=== PATIENT | male | born 1975 | race Hispanic/Latino ===

== ENCOUNTER 2023-11-21 21:49 | Inpatient (IN) | payer OTHER, SELFPAY ==
[2023-11-21] MEDS ORDERED: ONDANSETRON 4 MG/2 ML VIAL ONE (23:19)
[2023-11-21] MEDS ORDERED: FAMOTIDINE 20 MG/2 ML VIAL IV ONE (23:20)
[2023-11-21] MEDS ORDERED: MORPHINE 4 MG/ML SYR ONE (23:20)
[2023-11-21] MEDS ORDERED: NA CHLORIDE 0.9% 1,000 ML ONE (23:20)
[2023-11-21] MEDS ORDERED: NS 0.9% VIAL 10 ML ONE (23:21)
[2023-11-21 23:25] LABS: Absolute Basophils 0.1 K/uL (0-0.5); Absolute Lymphocytes (CBC) 3.5 K/uL (0.7-4.9); Absolute Monocytes 1.4 K/uL (0.1-1.3); Absolute Neutrophil 28.8 K/uL (1.8-8.0); Basophils % 0.3 % (0-1.3); Eosinophils % 0.1 % (0-4.4); Hematocrit 46.1 % (39.6-49.0); Hemoglobin 15.9 g/dL (13.6-17.9); Lymphocytes % 10.4 % (15.3-44.8); MCH 32.4 pg (27.0-35.0); MCHC 34.4 g/dL (32.0-36.0); MCV 94.2 fL (80-100); MPV 7.9 fL (7.6-11.3); Neutrophils % 85.2 % (41.7-73.7); Platelets 419 thou/uL (152-406); RBC Red Blood Cell Count 4.89 M/uL (4.33-5.43); Red Cell Distribution Width 13.3 % (12.1-15.2)
[2023-11-21 23:36] LABS: PTT, Activated Partial Thromb 26.7 SECONDS (24.3-36.9); Protime INR 1.28
[2023-11-21 23:50] LABS: Differential Total Cells Count 100; Segmented Neutrophils 81 % (40-80)
[2023-11-21 23:51] LABS: Blood Morphology Comment NOT SEEN (NOT SEEN); Lymphocytes 12 % (15-42); Monocytes 6 % (0-10); Platelet Estimate ADEQ; Platelets Clumped FEW
[2023-11-21 23:52] LABS: ALT/SGPT 27 U/L (16-61); AST/SGOT 19 U/L (15-37); Albumin 3.2 g/dL (3.4-5.0); Albumin/Globulin Ratio 0.6 (1.1-1.8); Alkaline Phosphatase 92 U/L (45-117); Anion Gap 14.6 mEq/L (5.0-15.0); BUN Blood Urea Nitrogen 16 mg/dL (7-18); Bicarbonate 24 mEq/L (21-32); Bilirubin Total 0.5 mg/dL (0.2-1.0); Glomerular Filtration Rate 71 ml/min (=/>90); Glucose Level 305 mg/dL (74-106); Lipase 32 U/L (13-75); Potassium 3.6 mEq/L (3.5-5.1); Protein, Total 8.2 g/dL (6.4-8.2); Sodium Level 131 mEq/L (136-145)
[2023-11-21 23:53] LABS: Troponin High Sensitivity < 3.0 pg/mL (<58.9)
[2023-11-21] MEDS ORDERED: NA CHLORIDE 0.9% 3,000 ML ONE (23:58)
--- NOTE | 2023-11-22 01:47 | EDPHYS ---
Physician Documentation [facility] Name: Ghassan Ramírez Age: 48 yrs Sex: Male : 1975 Arrival Date: 11/21/2023 Time: 21:49 Bed 6 Private MD: ED Physician Art Sullivan HPI: 11/20 23:36 This 48 yrs old Male presents to ER via Ambulatory with complaints of sb4 Abdominal Pain. 23:36 Patient started experiencing nausea, vomiting, and diarrhea 3 days ago. He initially sb4 suspected a stomach bug however today, his pain became severe and intolerable. He reports pain in his epigastric region that radiates up his chest. Denies any known fevers or prior abdominal surgeries. Denies any urinary symptoms. Historical: - Allergies: 22:37 PENICILLINS; jj7 22:37 Aspirin; jj7 - PMHx: 22:37 Hypertensive disorder; Diabetes mellitus; jj7 - PSHx: 22:37 None; jj7 - Immunization history:: Adult Immunizations not up to date, Client reports having NOT received the Covid vaccine. Flu vaccine is not up to date. - Social history:: Smoking status: Patient denies any tobacco usage or history of. Patient uses alcohol, occasionally. Patient/guardian denies using street drugs, IV drugs. ROS: 23:36 Constitutional: Negative for fever, chills, and weight loss, sb4 23:36 Abdomen/GI: Positive for abdominal pain, nausea, vomiting, and diarrhea, 23:36 All other systems are negative, Exam: 23:36 Head/Face: Normocephalic, atraumatic. Eyes: Extra-ocular motions intact. Periorbital sb4 areas with no swelling, redness, or edema. ENT: Mucous membranes moist. Cardiovascular: Regular rate and rhythm with a normal S1 and S2. Respiratory: Lungs have equal breath sounds bilaterally, clear to auscultation and percussion. No rales, rhonchi or wheezes noted. No increased work of breathing, no retractions or nasal flaring. Skin: Warm, dry with normal turgor. Normal color with no rashes, no lesions, and no evidence of cellulitis. MS/ Extremity: Pulses equal, no cyanosis. Neurovascular intact. Full, normal range of motion. Neuro: Awake and alert, GCS 15, oriented to person, place, time, and situation. Motor strength 5/5 in all extremities. Sensory grossly intact. 23:36 Constitutional: The patient appears alert, awake, in obvious pain, 23:36 Abdomen/GI: Inspection: obese Bowel sounds: normal, Palpation: soft, moderate abdominal tenderness, in the epigastric area and suprapubic area, Vital Signs: 22:32 BP 152 / 85; Pulse 110; Resp 20; Temp 97; Pulse Ox 99% ; Weight 131.09 kg; Height 5 ft. jj7 6 in. ; Pain 10/10; 22:56 BP 147 / 93; Pulse 118; Resp 22; Temp 98; Pulse Ox 97% on R/A; yb 23:53 BP 147 / 93; Pulse 117; Resp 20 S; Pulse Ox 98% on R/A; ha1 11/21 00:30 BP 156 / 76; Pulse 124; Resp 22; Pulse Ox 99% ; yb 01:15 BP 155 / 84; Pulse 123; Resp 22; Pulse Ox 98% on R/A; yb 01:55 BP 148 / 102; Pulse 132; Resp 20; Pulse Ox 98% on R/A; yb 02:30 BP 144 / 83; Pulse 129; Resp 24; Temp 97.5(O); Pulse Ox 97% on R/A; yb 11/20 22:32 Body Mass Index 46.65 (131.09 kg, 167.64 cm) [facility] 11/20 22:32 Pain Scale: Adult [facility] MDM: 11/20 22:39 Patient medically screened. sb4 11/21 01:27 Post IV fluid administration reassessment for Sepsis: Client prescribed 30 mL/kg IVF. sb4 Sepsis focused reassessment complete. 01:45 Data reviewed: vital signs, nurses notes, lab test result(s), EKG, radiologic studies, sb4 I have discussed the patient's presentation/case with the attending Emergency Department Physician; and as a result, I will admit patient. Consideration of Admission/Observation Patient was admitted/placed on observation. Management of patient was discussed with the following: Hospitalist: Dr. Pete. Patient Support Assistant: Dr. Montemayor, will operate immediately- exlap. Historians other than the Patient: Daughter/Son: daughter. Care significantly affected by the following chronic conditions: Diabetes, Hypertension, Obesity. Counseling: I had a detailed discussion with the patient and/or guardian regarding the historical points, exam findings, and any diagnostic results supporting the discharge/admit diagnosis, lab results, radiology results, the need for further work-up and treatment in the hospital. 01:47 Post IV fluid administration reassessment for Sepsis: Focused Assessment performed: November 22, 2023 at 01:47 Heart: Regular rate/rhythm noted. Lungs: Noted to be clear bilaterally. Peripheral pulse evaluation performed. Radial Peripheral pulses noted to be 3+ normal. Skin examination performed. Skin noted to have normal turgor. Current vital signs reviewed: Yes. 11/20 22:51 Order name: Blood Culture Adult (2) [facility] 11/20 22:51 Order name: CBC with Diff; Complete Time: 23:52 4 11/20 22:51 Order name: CMP; Complete Time: 00:01 sb4 11/20 22:51 Order name: Lactate w/ 2H reflex if indic.; Complete Time: 23:46 4 11/20 22:51 Order name: Protime (+inr); Complete Time: 23:39 sb4 11/20 22:51 Order name: Ptt, Activated; Complete Time: 23:39 sb4 11/20 22:51 Order name: Troponin HS; Complete Time: 00:01 4 11/20 22:51 Order name: Lipase; Complete Time: 00:01 4 11/20 23:30 Order name: Manual Differential; Complete Time: 23:52 EDMS 11/20 23:46 Order name: UAM; Complete Time: 02:55 sb4 11/21 01:28 Order name: Lactate w/ 2H reflex if indic. 4 11/21 02:20 Order name: Glucose, Ancillary Testing; Complete Time: 02:22 EDMS 11/21 02:25 Order name: Type And Screen sb4 11/20 23:47 Order name: CT Aorta for Dissection 4 11/20 22:51 Order name: EKG; Complete Time: 22:52 sb4 11/20 22:51 Order name: Accucheck; Complete Time: 23:52 sb4 11/20 22:51 Order name: Cardiac monitoring; Complete Time: 23:35 sb4 11/20 22:51 Order name: EKG - Nurse/Tech; Complete Time: 23:35 sb4 11/20 22:51 Order name: IV Saline Lock - Large Bore; Complete Time: 23:35 sb4 11/20 22:51 Order name: Labs collected and sent; Complete Time: 23:35 sb4 11/20 22:51 Order name: O2 Per Protocol; Complete Time: 23:36 sb4 11/20 22:51 Order name: O2 Sat Monitoring; Complete Time: 23:36 sb4 11/20 22:51 Order name: Vital Signs; Complete Time: 23:36 sb4 11/21 01:26 Order name: NPO; Complete Time: :33 sb4 EC:12 Rate is 113 beats/min. Rhythm is regular, Sinus tachycardia. MN interval is normal at sb4 148 msec. QRS interval is normal at 72 msec. QT interval is normal at 344 msec. No Q waves. T waves are Normal. No ST changes noted. Clinical impression: Sinus tachycardia and No evidence of ischemia. Interpreted by me. Reviewed by me. Administered Medications: 11/19 23:20 Drug: morphine IVP or IV 4 mg IVP once over 4 mins Route: IVP; Infused Over: 4 mins; yb Site: right hand; 11/21 00:00 Follow up: Response: Pain is unchanged, physician notified 11/20 23:20 Drug: Ondansetron IVP 4 mg IVP once; over 2 minutes Route: IVP; Site: right hand; yb 11/21 00:11 Follow up: Response: Nausea is decreased 11/20 23:20 Drug: NS 0.9% IV 1000 ml IV at 1 bolus Per protocol; 1000 mL bolus Route: IV; Rate: 1 yb bolus; Site: right hand; 11/21 00:12 Follow up: Response: No adverse reaction; IV Status: Completed infusion; IV Intake: yb 1000ml 11/20 23:24 Drug: Famotidine IVP 10 mg IVP once; dilute with 10 mL 0.9% NaCl; give over 2 minutes yb Route: IVP; Site: right hand; 11/21 00:11 Follow up: Response: No adverse reaction; Nausea is decreased yb 00:00 Drug: HYDROmorphone IVP 1 mg IVP once Route: IVP; Site: left antecubital; yb 00:30 Follow up: Response: No adverse reaction; Pain is decreased yb 00:05 Drug: NS 0.9% IV (30 ml/kg) 30 ml/kg IV at bolus once; Sepsis Protocol - 3 liters yb Route: IV; Rate: bolus; Site: left antecubital; 02:15 Follow up: Response: No adverse reaction; Cardiac rhythm is unchanged; IV Status: yb Completed infusion; IV Intake: 3000ml 01:44 Not Given (Physician Discretion): [id number] mg 200 ml IVPB once over 60 mins sb4 01:52 Drug: Rocephin IV 2 grams IV at calculated rate once; Given slow IV push per pharmarcy yb instructions Route: IV; Rate: calculated rate; Site: right hand; 02:00 Follow up: Response: No adverse reaction; IV Status: Completed infusion yb 02:10 Drug: metroNIDAZOLE IVPB 500 mg 100 ml IVPB at 200 ml/hr once over 30 mins Volume: 100 yb ml; Route: IVPB; Rate: 200 ml/hr; Infused Over: 30 mins; Site: right antecubital; 02:40 Follow up: Response: No adverse reaction; IV Status: Completed infusion; IV Intake: yb 100ml 02:30 Drug: Pantoprazole IVP 80 mg IVP once Route: IVP; Site: left antecubital; yb 02:35 Follow up: Response: No adverse reaction yb 02:30 Drug: Insulin Regular Human IVP 10 units IVP once {Co-Signature: raul (Kat Pina RN).} Route: IVP; Site: left antecubital; 02:42 Follow up: Response: No adverse reaction yb 02:32 Drug: Pantoprazole IV 8 mg/hr IV at 25 ml/hr continuous; (Standard dilution is 80 mg in yb 250 mL NS) Route: IV; Rate: 25 ml/hr; Site: right hand; 02:46 Follow up: Response: No adverse reaction; IV Status: Infusion continued upon admission yb Disposition: 01:45 Co-signature as Attending Physician, Art Sullivan MD I agree with the assessment sp4 and plan of care. I reviewed the patient's care provided by Advanced Practice Provider \T\ agree w/ the diagnosis \T\ care plan. I personally saw the pt \T\ performed a substantive portion of the visit, incldng all aspects of the (History/Exam/Medical Decision Making). Disposition Summary: 11/22/23 01:46 Hospitalization Ordered Notes: Hospitalization Status: Inpatient Admission sb4 Provider: Pallavi Pete Location: Intensive Care Unit sb4 Condition: Serious sb4 Problem: new sb4 Symptoms: are unchanged sb4 Bed/Room Type: Standard sb4 Room Assignment: sb4 Diagnosis - Duodenitis with acute perforated duodenal ulcer sb4 - Severe sepsis with septic shock sb4 - Duodenitis with perforated duodenal ulcer sb4 - Pneumatosis intestinalis sb4 Forms: - Medication Reconciliation Form sb4 - SBAR form sb4 - Leadership Thank You Letter sb4 Critical care time excluding procedures: 01:45 Critical care time: Bedside Care: 15 minutes, Consultation: 15 minutes, Family sb4 Intervention: 10 minutes. Total time: 40 minutes Signatures: Dispatcher [employer] EDMS Tova Infante RN RN ha1 Jaret Gomez RN RN Helen Garcia, PAMarc PAArt Bolivar MD MD sp4 Kat Pina RN RN yb Brown, Yolanda RN yb Corrections: (The following items were deleted from the chart) 02:08 01:45 Management of patient was discussed with the following: Hospitalist: Dr. Pete. sb4 Patient Support Assistant: Dr. Montemayor, will operate immediately. sb4
--- NOTE | 2023-11-22 01:47 | ER ---
Nurse's Notes [facility] Name: Ghassan Ramírez Age: 48 yrs Sex: Male : 1975 Arrival Date: 11/21/2023 Time: 21:49 Bed 6 Private MD: Diagnosis: Severe sepsis with septic shock;Duodenitis with perforated duodenal ulcer;Pneumatosis intestinalis Presentation: 11/20 22:32 Chief complaint: Patient states: N/V/D SATURDAY. TODAY HE STARTED HAVING ABD PAIN/ jj7 EPIGASTRIC PAIN 20 MINUTES AFTER EATING. Coronavirus screen: At this time, the client does not indicate any symptoms associated with coronavirus-19. Ebola Screen: No symptoms or risks identified at this time. Initial Sepsis Screen: Does the patient meet any 2 criteria? HR > 90 bpm. Yes Does the patient have a suspected source of infection? No. Patient's initial sepsis screen is negative. Risk Assessment: Do you want to hurt yourself or someone else? Patient reports no desire to harm self or others. Onset of symptoms was November 21, 2023. 22:32 Method Of Arrival: Ambulatory 7 22:32 Acuity: OMERO 3 jj7 22:32 Note PEPTO AND TUMS. jj7 Triage Assessment: 22:37 General: Appears in no apparent distress. uncomfortable, Behavior is calm, cooperative, jj7 appropriate for age. Pain: Complains of pain in epigastric area. GI: Reports upper abdominal pain, diarrhea, epigastric pain, nausea. Historical: - Allergies: 22:37 PENICILLINS; jj7 22:37 Aspirin; jj7 - PMHx: 22:37 Hypertensive disorder; Diabetes mellitus; jj7 - PSHx: 22:37 None; jj7 - Immunization history:: Adult Immunizations not up to date, Client reports having NOT received the Covid vaccine. Flu vaccine is not up to date. - Social history:: Smoking status: Patient denies any tobacco usage or history of. Patient uses alcohol, occasionally. Patient/guardian denies using street drugs, IV drugs. Screenin:38 [facility] ED Fall Risk Assessment (Adult) History of falling in the last 3 months, jj7 including since admission No falls in past 3 months (0 pts) Confusion or Disorientation No (0 pts) Intoxicated or Sedated No (0 pts) Impaired Gait No (0 pts) Mobility Assist Device Used No (0 pt) Altered Elimination No (0 pt) Score/Fall Risk Level 0 - 2 = Low Risk Oriented to surroundings, Maintained a safe environment, Educated pt \T\ family on fall prevention, incl call for assistance when getting out of bed. 11/21 00:12 Abuse screen: Denies threats or abuse. Denies injuries from another. Nutritional rv screening: No deficits noted. Tuberculosis screening: No symptoms or risk factors identified. Assessment: 11/20 23:00 General: Appears uncomfortable, Behavior is cooperative, restless, Reports. Pain: yb Complains of pain in abdomen Pain at worst was 10 out of 10 on a pain scale. Quality of pain is described as aching, shooting, Pain began suddenly. Neuro: No deficits noted. Level of Consciousness is awake, Oriented to person, place, time, situation. Cardiovascular: Capillary refill Patient's skin is warm and dry. Respiratory: No deficits noted. Airway is patent Respiratory effort is even, unlabored, Respiratory pattern is regular, symmetrical. GI: Abdomen is round non-distended, Bowel sounds present X 4 quads. Reports lower abdominal pain, upper abdominal pain, nausea. 11/21 00:00 Reassessment: Patient and/or family updated on plan of care and expected duration. Pain ha1 level reassessed. Patient is alert, oriented x 3, equal unlabored respirations, skin warm/dry/pink. 00:19 Reassessment: Off the floor to CT scan. yb 00:38 Reassessment: Patient and/or family updated on plan of care and expected duration. Pain ha1 level reassessed. back from CT. 01:20 Reassessment: Patient and/or family updated on plan of care and expected duration. Pain ha1 level reassessed. Patient is alert, oriented x 3, equal unlabored respirations, skin warm/dry/pink. 02:00 Reassessment: Dr. Pete hospitalist at bedside. yb 02:15 Reassessment: Patient and/or family updated on plan of care and expected duration. Pain ha1 level reassessed. Patient is alert, oriented x 3, equal unlabored respirations, skin warm/dry/pink. Dr. Montemayor in the room. 02:30 Reassessment: patient and family educated on the need for surgery by Sea Dobson. yb Vital Signs: 11/20 22:32 BP 152 / 85; Pulse 110; Resp 20; Temp 97; Pulse Ox 99% ; Weight 131.09 kg; Height 5 ft. jj7 6 in. ; Pain 10/10; 22:56 BP 147 / 93; Pulse 118; Resp 22; Temp 98; Pulse Ox 97% on R/A; yb 23:53 BP 147 / 93; Pulse 117; Resp 20 S; Pulse Ox 98% on R/A; ha1 11/21 00:30 BP 156 / 76; Pulse 124; Resp 22; Pulse Ox 99% ; yb 01:15 BP 155 / 84; Pulse 123; Resp 22; Pulse Ox 98% on R/A; yb 01:55 BP 148 / 102; Pulse 132; Resp 20; Pulse Ox 98% on R/A; yb 02:30 BP 144 / 83; Pulse 129; Resp 24; Temp 97.5(O); Pulse Ox 97% on R/A; yb 11/20 22:32 Body Mass Index 46.65 (131.09 kg, 167.64 cm) jj7 11/20 22:32 Pain Scale: Adult 7 ED Course: 11/20 21:50 Patient arrived in ED. jj6 21:52 Helen Pina [facility]-C [facility]. sb4 21:52 Art Sullivan MD is Attending Physician. sb4 22:36 Triage completed. jj7 22:37 Arm band placed on right wrist. jj7 23:00 Inserted saline lock: 20 gauge in right hand, using aseptic technique. Blood collected. yb 23:30 Inserted saline lock: 20 gauge in left antecubital area, using aseptic technique. yb 11/21 00:12 Patient has correct armband on for positive identification. Client placed on continuous rv cardiac and pulse oximetry monitoring. NIBP monitoring applied. radio antenna installer on. 00:12 No provider procedures requiring assistance completed. rv 00:30 CT Aorta for Dissection In Process Unspecified. EDMS 01:46 Pallavi Pete MD is Hospitalizing Provider. sb4 02:43 Provided Education on: Need for surgery. yb 02:43 Patient admitted, IV remains in place. yb Administered Medications: 11/19 23:20 Drug: morphine IVP or IV 4 mg IVP once over 4 mins Route: IVP; Infused Over: 4 mins; yb Site: right hand; 11/21 00:00 Follow up: Response: Pain is unchanged, physician notified yb 11/20 23:20 Drug: Ondansetron IVP 4 mg IVP once; over 2 minutes Route: IVP; Site: right hand; yb 11/21 00:11 Follow up: Response: Nausea is decreased yb 11/20 23:20 Drug: NS 0.9% IV 1000 ml IV at 1 bolus Per protocol; 1000 mL bolus Route: IV; Rate: 1 yb bolus; Site: right hand; 11/21 00:12 Follow up: Response: No adverse reaction; IV Status: Completed infusion; IV Intake: yb 1000ml 11/20 23:24 Drug: Famotidine IVP 10 mg IVP once; dilute with 10 mL 0.9% NaCl; give over 2 minutes yb Route: IVP; Site: right hand; 11/21 00:11 Follow up: Response: No adverse reaction; Nausea is decreased yb 00:00 Drug: HYDROmorphone IVP 1 mg IVP once Route: IVP; Site: left antecubital; yb 00:30 Follow up: Response: No adverse reaction; Pain is decreased yb 00:05 Drug: NS 0.9% IV (30 ml/kg) 30 ml/kg IV at bolus once; Sepsis Protocol - 3 liters yb Route: IV; Rate: bolus; Site: left antecubital; 02:15 Follow up: Response: No adverse reaction; Cardiac rhythm is unchanged; IV Status: yb Completed infusion; IV Intake: 3000ml 01:44 Not Given (Physician Discretion): [id number] mg 200 ml IVPB once over 60 mins sb4 01:52 Drug: Rocephin IV 2 grams IV at calculated rate once; Given slow IV push per pharmarcy yb instructions Route: IV; Rate: calculated rate; Site: right hand; 02:00 Follow up: Response: No adverse reaction; IV Status: Completed infusion yb 02:10 Drug: metroNIDAZOLE IVPB 500 mg 100 ml IVPB at 200 ml/hr once over 30 mins Volume: 100 yb ml; Route: IVPB; Rate: 200 ml/hr; Infused Over: 30 mins; Site: right antecubital; 02:40 Follow up: Response: No adverse reaction; IV Status: Completed infusion; IV Intake: yb 100ml 02:30 Drug: Pantoprazole IVP 80 mg IVP once Route: IVP; Site: left antecubital; yb 02:35 Follow up: Response: No adverse reaction yb 02:30 Drug: Insulin Regular Human IVP 10 units IVP once {Co-Signature: raul (Kat Pina RN).} Route: IVP; Site: left antecubital; 02:42 Follow up: Response: No adverse reaction yb 02:32 Drug: Pantoprazole IV 8 mg/hr IV at 25 ml/hr continuous; (Standard dilution is 80 mg in yb 250 mL NS) Route: IV; Rate: 25 ml/hr; Site: right hand; 02:46 Follow up: Response: No adverse reaction; IV Status: Infusion continued upon admission yb Medication: 00:12 VIS not applicable for this client. rv Intake: 00:12 IV: 1000ml; Total: 1000ml. yb 02:15 IV: 3000ml; Total: 4000ml. yb 02:40 IV: 100ml; Total: 4100ml. yb Outcome: 01:46 Decision to Hospitalize by Provider. sb4 02:43 Patient left the ED. yb 02:43 Admitted to OR accompanied by nurse, via stretcher, with chart, 02:43 Condition: stable 02:43 Instructed on the need for admit, Signatures: Dispatcher [employer] Rick Starks RN Mansi Nguyen6 Tova Infante RN RN ha1 Johnson, Juwairiyah, RN RN jHelen Ozuna PA-C PA-C sb4 Brown, Yolanda, RN RN yb Brown, Yolanda RN yb Corrections: (The following items were deleted from the chart) 02:53 01:20 Reassessment: Patient and/or family updated on plan of care and expected ha1 duration. Pain level reassessed. Patient is alert, oriented x 3, equal unlabored respirations, skin warm/dry/pink. ha1 03:06 02:57 Admitted to OR accompanied by nurse, via stretcher, with chart, yb yb 03:06 02:57 Condition: stable yb yb 03:06 02:57 Instructed on the need for admit, yb yb 03:06 03:04 Patient left the ED. yb raul
[2023-11-22] MEDS ORDERED: NA CHLORIDE 0.9% 50 ML ONE (01:55)
[2023-11-22] MEDS ORDERED: METRONIDAZOLE 500mg IVPB 500 MG/100 ML BAG IV ONE ×3 (01:55→16:31)
[2023-11-22] MEDS ORDERED: CEFTRIAXONE 2000 MG/VIAL ONE (01:55)
[2023-11-22] MEDS ORDERED: PANTOPRAZOLE 40 MG INJ ONE ×2 (02:13→02:14)
[2023-11-22] MEDS ORDERED: INSULIN REGULAR (HUMAN) 100 UNIT/ML ONE ×2 (02:15→02:20)
[2023-11-22] MEDS ORDERED: MIDAZOLAM HCL 2 MG/2 ML INJ ONE (02:35)
[2023-11-22] MEDS ORDERED: ETOMIDATE 20 MG/10 ML VIAL IV ONE ×2 (02:35→02:36)
[2023-11-22] MEDS ORDERED: FENTANYL CITR 250 MCG/5 ML ONE (02:35)
[2023-11-22] MEDS ORDERED: LIDOCAINE 1% MPF 5 ML VIAL ONE (02:36)
[2023-11-22] MEDS ORDERED: KETOROLAC 30 MG/ML INJ ONE (02:36)
[2023-11-22] MEDS ORDERED: dexAMETHasone 4 MG/ML VIAL ONE (02:36)
[2023-11-22] MEDS ORDERED: NEOSTIGMINE 1 MG/ML -10 ML VIAL ONE (02:36)
[2023-11-22] MEDS ORDERED: GLYCOPYRROLATE 0.2 MG/ML SYR ONE (02:36)
[2023-11-22] MEDS ORDERED: ROCURONIUM 50 MG/5 ML VIAL IV ONE (02:37)
[2023-11-22] MEDS ORDERED: ONDANSETRON 4 MG/2 ML VIAL ONE (02:40)
[2023-11-22 02:52] LABS: Sqamous Epithelial <5 /HPF (None Seen); Urine Bacteria <20 /HPF (<20); Urine Crystals Unidentified Few /HPF (None Seen); Urine Micro Reflex YN NO BILL MICROSCOPIC; Urine Mucus 1+ /HPF (None Seen); Urine RBC >50 /HPF (None Seen); Urine WBC <5 /HPF (<5); Urine Yeast (Budding) Trace /HPF (None Seen)
[2023-11-22 02:53] LABS: Specific Gravity > 1.030 (1.005-1.030); Urine Bilirubin NEGATIVE (Negative); Urine Blood 1+ (Negative); Urine Clarity Clear (Clear); Urine Color Light-Yellow (Yellow); Urine Glucose 3+ (Negative); Urine Ketones NEGATIVE (Negative); Urine Nitrite NEGATIVE (Negative); Urine Protein 1+ (Negative); Urine Urobilinogen Normal (Normal); Urine pH 5.5 (5.0-7.0)
[2023-11-22] MEDS: NA CHLORIDE 0.9% 1,000 ML ONE ×4 (03:02→06:16)
--- NOTE | 2023-11-22 03:33 | P.HP ---
Certification for Inpatient Patient admitted to: Inpatient With expected LOS: >2 Midnights Patient will require the following post-hospital care: None Practitioner: I am a practitioner with admitting privileges, knowledge of patient current condition, hospital course, and medical plan of care. Services: Services provided to patient in accordance with Admission requirements found in Title 42 Section 412.3 of the Code of Federal Regulations Patient History Date of Service: 11/22/23 Reason for admission: Perforated duodenal ulcer History of Present Illness: Patient is a 48-year-old gentleman with morbid obesity and history of hypertension comes into the emergency room with abdominal pain. He states he started having abdominal pain about a week ago. Since the pain started a week ago, he has been eating very little. However, earlier today he ate some [place] food, and his pain became very severe. He had sharp pain and his family brought him into the emergency room for further evaluation. In the ER, patient was found to have a leukocytosis with a white blood cell count of 33,000. Patient also had CT imaging which revealed a perforated duodenal ulcer. General surgery was consulted. Patient be taken to the operating room, and he will be admitted afterwards for inpatient hospitalization. Patient has a history of hypertension. Patient denies any cardiac disease or any pulmonary disease. He has never been diagnosed with obstructive sleep apnea. His BMI is almost 50. His states he does have some issues with his breathing when he sleeping where he does stop breathing at times. Patient otherwise with no other medical problems. Patient does have some allergies to aspirin, penicillin, and an unknown medication that he took at [facility] which gave him hives. They said it may have been a medication that they used for coughing. Not sure if this was codeine. Will try to stay away from using codeine/morphine for pain control. Allergies aspirin Allergy (Verified 11/22/23 03:02) Hives Penicillins Allergy (Verified 11/22/23 03:02) Hives Home medications list reviewed: Yes - Past Medical/Surgical History -: Hypertension Past Surgical History: Patient denies surgical history - Family History Father Family History: Reviewed- Non-Contributory - Social History Smoking Status: Former smoker Alcohol use: No CD- Drugs: No Review of Systems 10-point ROS is otherwise unremarkable Physical Examination - Vital Signs Temperature: 97.5 F Blood Pressure: 144/83 Pulse: 129 Respirations: 24 Pulse Ox (%): 95 - Physical Exam General: Alert, In no apparent distress, Oriented x3 HEENT: Atraumatic, PERRLA, Mucous membr. moist/pink, EOMI, Sclerae nonicteric Neck: Supple, 2+ carotid pulse no bruit, No LAD, Without JVD or thyroid abnormality Respiratory: Clear to auscultation bilaterally, Normal air movement Cardiovascular: Regular rate/rhythm, Normal S1 S2 Gastrointestinal: Normal bowel sounds, Hypoactive, Soft and benign, Distended, Tenderness, Rebound, Guarding Musculoskeletal: No clubbing, No swelling, No tenderness Integumentary: No rashes Neurological: Normal gait, Normal speech, Normal strength at 5/5 x4 extr, Normal tone, Sensation intact, Cranial nerves 3-12 intact, Normal affect Lymphatics: No axilla or inguinal lymphadenopathy - Studies Laboratory Data (last 24 hrs) 11/21/23 11/21/23 11/21/23 23:10 23:10 23:10 WBC 33.80 H Hgb 15.9 Hct 46.1 Plt Count 419 H PT 14.0 H INR 1.28 APTT 26.7 Sodium 131 L Potassium 3.6 BUN 16 Creatinine 1.24 Glucose 305 H Total Bilirubin 0.5 AST 19 ALT 27 Alkaline Phosphatase 92 Lipase 32 Assessment & Plan - Problems (Diagnosis) (1) Perforated duodenal ulcer Current Visit: Yes Status: Acute (2) Hypertension Current Visit: Yes Status: Acute (3) Hyperglycemia Current Visit: Yes Status: Acute (4) Leukocytosis Current Visit: Yes Status: Acute (5) Lactic acidosis Current Visit: Yes Status: Acute (6) Hyponatremia Current Visit: Yes Status: Acute (7) Microscopic hematuria Current Visit: Yes Status: Acute (8) Morbid obesity with BMI of 40.0-44.9, adult Current Visit: Yes Status: Acute (9) Severe sepsis Current Visit: Yes Status: Acute - Plan Plan: 1. Perforated duodenal ulcer with peritonitis and secondary lactic acidosis and leukocytosis; patient with severe sepsis with no secondary organ dysfunction. At this time, we will continue with PPI drip and IV antibiotic therapy. Patient will be had given aggressive IV hydration. Patient with type A lactic acidosis most likely secondary to regional hypoperfusion of duodenal tissue. Patient with peritoneal signs as patient has rebound tenderness and guarding indicative of peritonitis in the current setting. Patient with significant leukocytosis and tachycardia along with being tachypneic. Patient with severe sepsis with no organ dysfunction. At this time patient will be measured aggressively with IV hydration. Patient been given 4 L of IV fluids and will continue to aggressively hydrate patient during this portion of his hospitalization. If his blood pressure does drop we will go ahead and get an echocardiogram to assess his cardiac functioning. We will not have echo technicians available over the weekend and if patient's clinical condition does deteriorate then baseline information on cardiac functioning would be very helpful. 2. Hyperglycemia; most likely related to acute infectious etiology. Patient denies having a history of diabetes. However, his clinical picture is indicative of insulin resistance. Will go ahead and put him on a sliding scale. Check a hemoglobin A1c level. Will monitor his blood sugars closely as this is clinically important for appropriate healing. 3. History of hypertension; monitor his hemodynamics closely. Patient with severe sepsis and he could progress to septic shock. Will hold his antihypertensives at this time 4. Hyponatremia; with correction for elevated blood sugars, corrected sodium is 134. Will gently hydrate and most likely related to volume depletion. Will not get a FeNa at this time and will just hydrate patient. This should correct fairly quickly, and if this does not then it warrants further evaluation 5. Thrombocytosis; most likely reactive to current infectious process. Patient with significant leukocytosis. 6. Microscopic hematuria; this can be reassessed in the outpatient setting once his current medical condition is stabilized. 7. GI DVT prophylaxis Critical care time spent on patient's care was 60 minutes Discharge Plan: Home Plan to discharge in: Greater than 2 days - Advance Directives Does patient have a Living Will: No Does patient have a Durable POA for Healthcare: No - Code Status/Comfort Care Code Status Assessed: Yes Code Status: Full Code Critical Care: Yes Time Spent Managing PTS Care (In Minutes): 60
[2023-11-22] MEDS: ALBUMIN HUM 5% 250 ML IV ONE (03:40)
[2023-11-22] MEDS ORDERED: HYDROMORPHONE HCL 0.5 MG/0.5 ML INJ IV PRN (04:56)
[2023-11-22] MEDS ORDERED: ONDANSETRON 4 MG/2 ML VIAL IV PRN (04:56)
[2023-11-22] MEDS: PANTOPRAZOLE INJ 80 MG in NA CHLORIDE 0.9% 250 ML IV SCH (05:00)
[2023-11-22] MEDS: NA CHLORIDE 0.9% 1,000 ML IV SCH (05:00)
[2023-11-22] MEDS ORDERED: NA CHLORIDE 0.9% 250 ML IV SCH (05:00)
--- NOTE | 2023-11-22 05:06 | P.OP ---
Preoperative diagnosis: Perforated Duodenal Ulcer Postoperative diagnosis: Perforated Duodenal Ulcer Primary procedure: Exploratory Laparotomy Secondary procedure: Alvino Patch repair of perforated duodenal ulcer Anesthesia: GETA + Local Estimated blood loss: <20cc Specimen: none Findings: Perforated duodenal bulb, gross bilous contamination Complications: None Drain(s): NEAL drain (10mm Flat) Transferred to: ICU Condition: Serious
--- NOTE | 2023-11-22 05:21 | CON ---
Date of Consultation: 11/22/2023 Brief History Of Present Illness: The patient is a 48-year-old male with past medical histo ry of hypertension, diabetes, who does not have regular medical care with a primary care provider, simone o presents with approximately 4 to 5 days of abdominal pain beginning in the epigastric region. He t hought it was related to some food related illness such as a food poisoning episode as he had episode s of intermittent abdominal pain, early satiety, nausea, vomiting, decreased p.o. intake over the cou rse of the past 4 to 5 days. However, yesterday he ate some fried rice, which precipitated a signifi cant amount of severe epigastric abdominal pain with nausea, vomiting. He has never had pain of this level of severity and as such he came to the emergency room with the above-stated complaints. Since being in the emergency room, he has some improvement of symptoms with Dilaudid, but other than that he has severe abdominal pain, very tender to the touch. He has had no sick contacts. No recent evangelina el. No other new food exposures by his report. He has no change in bowel or bladder habits otherwis e to his knowledge other than diarrhea, which has been intermittent over the past week. Past Medical History: Hypertension, diabetes. Past Surgical History: Denies. Allergies: TO PENICILLIN, ASPIRIN. Home Medications: He takes medication for his blood pressure and diabetes, but he cannot recall thes e and did not bring them with him at this time. He denies taking any blood thinners. Social History: He denies smoking, alcohol, recreational drug use. He works at the [employer]. A 10-point review of systems other than HPI, he denies. Physical Examination: Vital Signs: At the time of my examination, his vital signs were heart rate of 128, blood pressure i s 107/74, respiratory rate was 22, his SpO2 is 99% on room air. General: He is awake, alert, oriented. He is obese. He is approximately 132 kg. HEENT: Otherwise normocephalic. His sclerae are anicteric. His mucosa is moist. Oropharynx clear. Neck: Supple without JVD. Chest: Normal expansion excursion. Cardiovascular: Regular rate and rhythm. Pulmonary: Clear to auscultation bilaterally, but decreased inspiratory effort secondary to pain. Abdomen: Firm, distended, tender to palpation, peritoneal, particularly in the epigastric region wit h positive voluntary guarding and involuntary guarding. Positive rebound. He has an acute surgical abdomen by exam. Extremities: No clubbing, cyanosis, or edema. Skin: Warm and dry. Laboratory Data: Revealed white blood cell count of 33.8, hemoglobin is 15.9, hematocrit 46.1, plate let count was 419, neutrophils are 85%. His coags showed PT 14.0, INR 1.2, APTT is 26.7. Chemistry showed sodium 131, potassium 3.6, chloride 96, carbon dioxide 24, BUN 16, creatinine 1.24, glucose is 305. Lactic acid was 4.9, total bilirubin 0.5, AST 19, ALT 29, alkaline phosphatase is 92, lipase i s 32. He had a CT scan performed of the abdomen and pelvis which was read by the [facility] radiologi st as no thoracic or abdominal aortic aneurysm or dissection. There was prominent mucosal thickening of the duodenum with periduodenal stranding highly suspicious for duodenitis. A focus of intramural air seen within thickened duodenum. Perforated duodenal ulcer resulting in free peritoneal air shou ld be suspected. There is fluid extending in the periduodenal area into the pericholecystic space be cause of thickening involving multiple segments of small bowel in the lower abdomen and pelvis, multi ple locules of intramural air consistent with pneumatosis intestinalis, which may reflect bowel ische raimundo. There is interloop fluid adjacent to the thickened segments of small bowel and mesenteric edema likely reactive. Large amount of free fluid extending into the pelvis. Abnormal for male cholelith iasis. An addendum was noted as well which showed the critical findings intraperitoneal and other fi ndings reported to the referring ER physician. Assessment And Plan: This is a 48-year-old male, who comes in with signs and symptoms of a perforate d viscus, likely possible duodenal/gastric perforated ulcer and possible ischemic bowel. 1.IV fluid hydration. 2.Antibiotic coverage. 3.I have explained the risks, benefits, and alternatives to exploratory laparotomy, possible bowel r esection, and indicated procedures including, but not limited to bleeding, infection, damage to any i nternal organs, blood clots, heart attack, strokes, fistulas, ongoing wound care, hernias, need for f urther operation procedures, sepsis, possible septic shock resulting in and need for possible m ultiple procedures and ongoing long-term care with many unforeseen complications in the perioperative period, which include, but are not limited to also blood clots, heart attack, strokes, and other unf oreseen complications related to anesthesia and the perioperative period. The patient displayed unde rstanding of the above stated plan and agreed to proceed as indicated. Continue medical management. Thank you for this interesting consult. ELIA/HAZEL Voice ID: [id number] Report ID: [id number]
[2023-11-22] MEDS ORDERED: Levofloxacin500mg IV 500 MG/100 ML BAG IV ONE ×2 (05:22→08:37)
[2023-11-22] MEDS: HYDROMORPHONE HCL 1 MG/ML INJ ONE ×2 (06:12→06:15)
[2023-11-22] MEDS: INSULIN REGULAR (HUMAN) 100 UNIT/ML SQ SCH (07:30)
--- NOTE | 2023-11-22 07:48 | OP ---
Date of Procedure: 11/22/2023 Surgeon: Dipak Montemayor MD, Preoperative Diagnosis: Perforated duodenal ulcer. Postoperative Diagnosis: Perforated duodenal ulcer. Procedures Performed: 1.Exploratory laparotomy. 2.Alvino patch repair of perforated duodenal ulcer. Anesthesia: General endotracheal. Estimated Blood Loss: 20 cc Specimen: None. Findings: 1.Perforated duodenal bulb with gross bilious contamination throughout the entire abdomen. There wa s significant inflammatory change throughout the abdomen consistent with perforation. 2.There was some area of inflamed bowel, but no obvious ischemic changes as the small bowel was run in its entirety. No other obvious pathologic findings at this time. The patient had significant int raabdominal obesity. Complications: None. Drains: 10 mm flat NEAL drain. Disposition: The patient was transferred to ICU in serious condition. Procedure In Detail: After informed consent was obtained, the patient was brought to the operating r oom, prepped and draped in usual sterile fashion. After adequate anesthesia was achieved, I made an upper midline laparotomy incision down through subcutaneous tissues with a 10 blade. I then used andres ctrocautery to dissect down through subcutaneous fat, exposing the linea alba and abdominal fascia. This was opened sharply at this point to expose the peritoneum. The peritoneum was opened sharply wi th Metzenbaum scissors in its entirety without incident or complication. At this point, the abdomen was opened. Immediately encountered was bilious contaminated fluid. A Duran abdominal self-retain ing retractor was placed into the abdomen at this point. I then began suctioning out contaminated bi lious material throughout the right upper quadrant, ultimately palpating the stomach which was found to have some thickening; however, no perforation was appreciated in the stomach. However, right just past the pylorus at the duodenal bulb, anterior perforated duodenal ulcer was found, which was less than a centimeter in size, but close to a centimeter bilious material was emanating from this along w ith air and continued gastric contents. This was suctioned out at this point. I placed 2-0 silk sta y sutures, 3 of them and then passed a tongue of vascularized omentum through this and secured it in a Alvino patch type repair. After I secured these sutures, I then irrigated the area copiously, test ed it, and had the anesthesiologist place the NG tube while I palpated it and placed the NG tube righ t adjacent to the repair. At this point, the abdomen was copiously irrigated multiple times until co mpletely clear. Contaminated material was found throughout all 4 quadrants and into the pelvis and s mall bowel area. I then ran the small bowel from the ligament of Treitz to ileocecal valve. No isch emic changes were appreciated; however, there was significant segments of the proximal and mid small bowel that were significantly inflamed. There were no obvious ischemic changes or necrosis to the sm all bowel. It was all viable and peristaltic throughout the procedure. I ran the entire small bowel twice before and after irrigation, and no additional pathologic findings were appreciated at this po int at that portion of the small bowel beyond the described perforation as described above. After th e abdomen was cleared and the effluent was essentially clear, I placed a 10 mm flat NEAL drain adjacent to the repair in the subhepatic space adjacent to the Alvino patch repair and secured it to the skin using a 2-0 nylon suture. At this point, I brought the abdominal Fish in place and closed the abdom en using a running #1 looped PDS suture without incident or complication. The abdominal Fish was rem constance. The fascial repair was intact. The skin was copiously irrigated at this point, and then the s kin was closed with interrupted samantha and a sterile dressing placed over top. The patient tolerate d procedure without incident or complication, transferred to PACU in good condition. All counts were correct at the end of the case. ELIA/HAZEL Voice ID: [id number] Report ID: [id number]
--- NOTE | 2023-11-22 07:59 | P.PN ---
Date of Service: 11/22/23 Subjective: Feeling a little better post operatively denies nausea / vomiting still dealing with some abdominal discomfort but improving afebrile ROS: 10 point ROS as noted above, otherwise negative Physical Exam: GEN: Alert, oriented, NAD HEENT: Normal conjunctiva, sclera anicteric, CV: Sinus tachycardia, no edema Pulm: Nonlabored respirations on 3L NC, shallow respirations, clear bilaterally ABD: soft, epigastric tenderness, surgical dressing in place Neuro: Normal speech, normal affect NEAL drain in place NGT to LIWS in place [place] in place Problem List: Severe Sepsis, secondary to perforated duodenal ulcer, now s/p buck patch repair of perforated ulcer (11/21) hx DM2 with Hyperglycemia, likely secondary to acute infxn hyponatremia, hypocalcemia, hypomagnesemia Hypertension Microscopic hematuria morbid obesity Severe Sepsis, secondary to perforated duodenal ulcer, now s/p buck patch repair of perforated ulcer (11/21) CT dissection (11/20): perforated duodenal ulcer. Mucosal thickening involving multiple segments of small bowel in lower abdomen/pelvis. Multiple locules of intramural air consistent with pneumatosis intestinals which may reflect bowel ischemia. Interloop fluid adjacent to thickened segments of small bowel and mesenteric edema, likely reactive. Large amount of fluid extending into the pelvis. Cholelithiasis Dr. Montemayor consulted s/p buck patch repair of perforated ulcer (11/21) Found to have perforated duodenal bulb with gross bilous contamination throughout abd some area of inflamed bowels seen during surgery however no obvious ischemic changes continue PPI drip NEAL drain in place; NGT to LIWS trend H&H continue empiric levaquin / flagyl (11/21-) afebrile, leukocytosis improving PRN analgesics / antiemetics PT consult Hyperglycemia, likely secondary to acute infxn patient denies history of diabetes accu-checks, SSI check A1c Hypertension confirm home meds allow for permissive hypertension Microscopic hematuria can be reassessed as outpatient once infxn resolves VTE: heparin sq Code: Full Dispo: Home, ~2 days
[2023-11-22 08:13] LABS: Hematocrit 35.7 % (39.6-49.0); Hemoglobin 12.4 g/dL (13.6-17.9); MCH 32.8 pg (27.0-35.0); MCHC 34.7 g/dL (32.0-36.0); MCV 94.4 fL (80-100); MPV 7.3 fL (7.6-11.3); Platelets 244 thou/uL (152-406); RBC Red Blood Cell Count 3.79 M/uL (4.33-5.43); Red Cell Distribution Width 13.4 % (12.1-15.2)
[2023-11-22 08:35] LABS: Anion Gap 7.8 mEq/L (5.0-15.0); Potassium 3.8 mEq/L (3.5-5.1)
[2023-11-22 08:49] LABS: Magnesium 1.2 mg/dL (1.6-2.4); Phosphorus 1.9 mg/dL (2.5-4.9)
[2023-11-22] MEDS: HEPARIN 5000 UNIT/ML 1 ML VIAL SQ SCH (08:52)
[2023-11-22] MEDS: METRONIDAZOLE 500mg IVPB 500 MG/100 ML BAG IV SCH (08:52)
[2023-11-22] MEDS: Levofloxacin500mg IV 500 MG/100 ML BAG IV SCH (08:52)
[2023-11-22] MEDS ORDERED: CEFTRIAXONE 1,000 MG in NA CHLORIDE 0.9% 50 ML IVPB SCH (09:00)
[2023-11-22] MEDS: INFLUENZA VACCINE (for 6+ mo) 0.5 ML DOSE IMVAC ONE (09:00)
[2023-11-22 11:30] LABS: Anion Gap 7.6 mEq/L (5.0-15.0); Magnesium 1.3 mg/dL (1.6-2.4); Potassium 4.6 mEq/L (3.5-5.1)
--- NOTE | 2023-11-22 11:51 | EKG ---
Test Date: 2023-11-21 Test Time: 22:46:16 Ug Designer: MARIA GUADALUPE MEASUREMENT RESULTS: Intervals: Rate: 113 CO: 148 QRSD: 72 QT: 344 QTc: 471 [place]: P: 30 CO: 148 QRS: 36 T: 47 INTERPRETIVE STATEMENTS: Sinus tachycardia Anterior infarct, age undetermined Abnormal ECG No previous ECG available for comparison Electronically Signed On 11-22-23 11:48:41 CDT by Macario Gilbert
[2023-11-22] MEDS ORDERED: Magnesium Sulfate 2gm IVPB 2 G/50 ML BAG IV ONE (12:53)
[2023-11-22] MEDS: Magnesium Sulfate 2gm IVPB 2 G/50 ML BAG IV ONE (12:56)
[2023-11-22 13:15] LABS: Hematocrit 40.9 % (39.6-49.0); Hemoglobin 13.9 g/dL (13.6-17.9)
--- NOTE | 2023-11-22 13:35 | RAD REPORT ---
EXAM DESCRIPTION: ADDENDUM #1 Critical finding of free intraperitoneal air and other findings reported discussed with referring alesiay pauian at 1: 34 AM Electronically signed by: Ghassan Hassan MD 11/22/2023 01:47 AM CDT End of Addendum EXAM DESCRIPTION: Angio Aorta For Dissection CLINICAL HISTORY: Chest pain;Abd pain TECHNIQUE: Contiguous axial images obtained through the chest, abdomen and pelvis during angiographi c phase images IV contrast. Sagittal and coronal reformatted images were provided. 3-D MIP reformatte d images were provided. This exam was performed according to our departmental dose-optimization program, which includes autom ated exposure control, adjustment of the mA and/or kV according to patient size and/or use of iterati ve reconstruction technique. COMPARISON: No prior exams provided for comparison. FINDINGS: Thoracic aorta: No thoracic aortic aneurysm or dissection Lungs: No focal consolidation. Airways are patent. Pleura: No effusion. No pneumothorax. Heart and pericardium: The heart is normal in size. No pericardial effusion. Mediastinum and radha: No pathologically enlarged lymph nodes. Lower neck and chest wall: Unremarkable Vessels: No pulmonary arterial filling defects. No thoracic aortic aneurysm. Bones: Unremarkable Abdominal aorta: No aneurysm. No dissection. Celiac trunk: No significant stenosis or occlusion. SMA: No significant stenosis or occlusion. JOSE: No significant stenosis or occlusion. Renal arteries: No significant stenosis or occlusion. Iliac arteries: No significant stenosis or occlusion. RECORDS ASSOCIATE: No significant stenosis or occlusion. Liver: Unremarkable Gallbladder and biliary system: Multiple gallstones. Pancreas: Unremarkable Spleen: Unremarkable Adrenal: Unremarkable Kidneys: Normal renal cortical enhancement. No calculi. No hydronephrosis. GI: There is prominent mucosal thickening of the duodenum with periduodenal stranding, highly suspici ous for duodenitis. A focus of intramural air is seen within the thickened duodenum. Perforated duode nal ulcer resulting in free intraperitoneal air most be suspected. There is fluid extending from the periduodenal area to the pericholecystic space. Scattered colonic diverticula with no evidence of diverticulitis. There is mucosal thickening involving multiple segments of small bowel in the lower abdomen and pelvi s. Multiple locules of intramural air consistent with pneumatosis intestinalis which may reflect cecy l ischemia. There is interloop fluid adjacent to the thickened segments of small bowel and mesenteric edema, like ly reactive. Large amount of fluid extending into the pelvis, abnormal for a male. Appendix: No findings to suggest acute appendicitis. Urinary bladder: Unremarkable Reproductive: Unremarkable as visualized Lymph nodes: No pathologically enlarged lymph nodes. Peritoneum: Perihepatic fluid. Free intraperitoneal air in the right upper quadrant anterior to the r ight lobe of the liver. Trace perisplenic fluid Abdominal wall: Unremarkable Bones: Unremarkable IMPRESSION: 1. No thoracic or abdominal aortic aneurysm or dissection. 2. Prominent mucosal thickening of the duodenum with periduodenal stranding, highly suspicious for duodenitis. A focus of intramural air is seen within the thickened duodenum. Perforated duodenal ulce r resulting in free intraperitoneal air should be suspected. There is fluid extending from the peridu odenal area to the pericholecystic space. 3. Mucosal thickening involving multiple segments of small bowel in the lower abdomen and pelvis. M ultiple locules of intramural air consistent with pneumatosis intestinalis which may reflect bowel is chemia. There is interloop fluid adjacent to the thickened segments of small bowel and mesenteric braxton ma, likely reactive. Large amount of fluid extending into the pelvis, abnormal for a male. 4. Cholelithiasis. Electronically signed by: Ghassan Hassan MD 11/22/2023 01:19 AM CDT Due to temporary technical issues with the PACS/Fluency reporting system, reports are being signed by the in house radiologists without review as a courtesy to insure prompt reporting. The interpreting radiologist is fully responsible for the content of the report.
[2023-11-22] MEDS ORDERED: HEPARIN 5000 UNIT/ML 1 ML VIAL ONE (16:31)
[2023-11-23] MEDS: HYDROMORPHONE HCL 1 MG/ML INJ IV PRN (00:40)
[2023-11-23] MEDS ORDERED: Levofloxacin500mg IV 500 MG/100 ML BAG IV ONE (04:29)
[2023-11-23 05:27] LABS: Absolute Monocytes 1.1 K/uL (0.1-1.3); Absolute Neutrophil 12.3 K/uL (1.8-8.0); Basophils % 0.1 % (0-1.3); Eosinophils % 0.2 % (0-4.4); Hematocrit 38.3 % (39.6-49.0); Hemoglobin 13.2 g/dL (13.6-17.9); Lymphocytes % 7.1 % (15.3-44.8); MCH 32.9 pg (27.0-35.0); MCHC 34.4 g/dL (32.0-36.0); MCV 95.8 fL (80-100); MPV 7.8 fL (7.6-11.3); Monocytes % 7.5 % (3.3-12.3); Neutrophils % 85.1 % (41.7-73.7); Platelets 264 thou/uL (152-406); Red Cell Distribution Width 13.6 % (12.1-15.2)
[2023-11-23 05:41] LABS: PT Prothrombin Time 18.7 SECONDS (9.5-12.5); PTT, Activated Partial Thromb 31.8 SECONDS (24.3-36.9); Protime INR 1.73
[2023-11-23 05:51] LABS: Albumin/Globulin Ratio 0.6 (1.1-1.8); Anion Gap 9.8 mEq/L (5.0-15.0); Bilirubin Direct 0.2 mg/dL (0-0.2); Bilirubin Indirect, Calculated 0.3 mg/dL (0.2-0.8); Bilirubin Total 0.5 mg/dL (0.2-1.0); Globulin 3.5 g/dL (2.3-3.5); Magnesium 1.7 mg/dL (1.6-2.4); Potassium 3.8 mEq/L (3.5-5.1); Protein, Total 5.5 g/dL (6.4-8.2)
[2023-11-23] MEDS: POTASSIUM PHOS IN 0.9 % NACL 15 MMOL/250 ML BAG IV ONE (06:25)
--- NOTE | 2023-11-23 06:47 | P.PN ---
Date of Service: 11/23/23 Subjective: feeling better today. still with some mild abdominal discomfort / epigastric tenderness but slowly improving +shallow respirations on room air, sinus tachy in 110s not much volume on incentive spirometer, states he thinks he may be limiting himself due to expectation of pain no acute events overnight no flatus, no BM afebrile has not gotten out of bed yet ROS: 10 point ROS as noted above, otherwise negative Physical Exam: GEN: Alert, oriented, appears somewhat uncomfortable HEENT: Normal conjunctiva, sclera anicteric, CV: Sinus tachycardia, no edema Pulm: shallow respirations, slight tachypnea, clear bilaterally ABD: soft, mild-mod epigastric tenderness, surgical dressing in place Neuro: Normal speech, normal affect NEAL drain in place NGT to LIWS in place [place] in place Problem List: Severe Sepsis, secondary to perforated duodenal ulcer, now s/p buck patch repair of perforated ulcer (11/21) sinus tachycardia Hyperglycemia hyponatremia, hypocalcemia, hypomagnesemia Hypertension Microscopic hematuria morbid obesity Severe Sepsis, secondary to perforated duodenal ulcer, now s/p buck patch repair of perforated ulcer (11/21) sinus tachycardia CT dissection (11/20): perforated duodenal ulcer. Mucosal thickening involving multiple segments of small bowel in lower abdomen/pelvis. Multiple locules of intramural air consistent with pneumatosis intestinals which may reflect bowel ischemia. Interloop fluid adjacent to thickened segments of small bowel and mesenteric edema, likely reactive. Large amount of fluid extending into the pelvis. Cholelithiasis Dr. Montemayor consulted s/p buck patch repair of perforated ulcer (11/21) Found to have perforated duodenal bulb with gross bilious contamination throughout abd; some area of inflamed bowels seen during surgery however no obvious ischemic changes continue PPI drip NEAL drain in place; NGT to LIWS trend H&H expected to have prolonged ileus due to perforation / gross bilious contamination continue empiric levaquin / flagyl (11/21-) afebrile, leukocytosis 12.3 -> 14.5 (11/22) PRN analgesics / antiemetics PT consulted sinus tachycardia likely secondary to pain and body habitus UOP improved, less likely but some possible component of dehydration Hyperglycemia patient denies history of diabetes; unclear etiology, possibly from stress r esponse given all going on, possible diabetes, check A1c accu-checks, SSI hyponatremia, hypocalcemia, hypomagnesemia secondary to decreased PO / surgery Daily labs Replace PRN Hypertension confirm home meds Microscopic hematuria can be reassessed as outpatient once infxn resolves VTE: heparin sq Code: Full Dispo: Home, ~4-5 days
[2023-11-23] MEDS: MAGNESIUM SULFATE 1 gm IVPB 1 GM/100 ML BAG IV ONE (12:12)
[2023-11-24] MEDS ORDERED: ACETAMINOPHEN 500 MG TAB ONE (00:44)
[2023-11-24] MEDS: ACETAMINOPHEN 500 MG TAB PO PRN (00:45)
[2023-11-24 05:14] LABS: Absolute Basophils 0.1 K/uL (0-0.5); Absolute Eosinophils 0.2 K/uL (0-0.5); Absolute Lymphocytes (CBC) 1.8 K/uL (0.7-4.9); Absolute Monocytes 1.1 K/uL (0.1-1.3); Absolute Neutrophil 14.6 K/uL (1.8-8.0); Basophils % 0.6 % (0-1.3); Eosinophils % 1.3 % (0-4.4); Hematocrit 38.3 % (39.6-49.0); Hemoglobin 12.9 g/dL (13.6-17.9); Lymphocytes % 9.9 % (15.3-44.8); MCH 31.9 pg (27.0-35.0); MCHC 33.6 g/dL (32.0-36.0); MCV 94.9 fL (80-100); MPV 8.2 fL (7.6-11.3); Monocytes % 6.1 % (3.3-12.3); Neutrophils % 82.1 % (41.7-73.7); Platelets 270 thou/uL (152-406); RBC Red Blood Cell Count 4.03 M/uL (4.33-5.43); Red Cell Distribution Width 13.3 % (12.1-15.2)
[2023-11-24 05:32] LABS: Albumin 2.1 g/dL (3.4-5.0); Albumin/Globulin Ratio 0.5 (1.1-1.8); Anion Gap 7.7 mEq/L (5.0-15.0); Bilirubin Total 0.4 mg/dL (0.2-1.0); Globulin 4.2 g/dL (2.3-3.5); Magnesium 2.2 mg/dL (1.6-2.4); Phosphorus 1.7 mg/dL (2.5-4.9); Potassium 3.7 mEq/L (3.5-5.1); Protein, Total 6.3 g/dL (6.4-8.2)
[2023-11-24] MEDS: POTASSIUM PHOS IN 0.9 % NACL 15 MMOL/250 ML BAG IV ONE (06:29)
--- NOTE | 2023-11-24 07:15 | RAD REPORT ---
EXAM DESCRIPTION: RAD - Chest Single View - 11/24/2023 6:58 am CLINICAL HISTORY: tachypnea COMPARISON: Angio Aorta For Dissection dated 11/22/2023 FINDINGS: Lines: Enteric tube below the diaphragm. Lungs: Low lung volumes. Prominence of the pulmonary interstitium. Pleural: No significant pleural effusions or pneumothorax. Cardiac: The heart size is within normal limits. Mediastinum: Within normal limits. Bones: No acute fractures. Other: Trace air underneath the right hemidiaphragm. IMPRESSION: 1. Low lung volumes with prominence of the pulmonary interstitium that could reflect a c ombination of edema and atelectasis. 2. Trace free air in the right upper quadrant underneath the right hemidiaphragm. The patient had int raperitoneal free air on 11/22/2023 CT.
--- NOTE | 2023-11-24 09:32 | P.PN ---
Date of Service: 11/24/23 Subjective: No acute events overnight Able to take a deeper breath, up to 1 L on incentive spirometer, from 500 mL Pain improving, ambulated with physical therapy yesterday No flatus, no BM No nausea/vomiting Afebrile Urine output adequate ROS: 10 point ROS as noted above, otherwise negative Physical Exam: GEN: Alert, oriented, NAD HEENT: Normal conjunctiva, sclera anicteric, CV: Sinus tachycardia, trace b/l lower extremity edema above ankles Pulm: shallow respirations, clear bilaterally ABD: soft, mild-mod epigastric tenderness, surgical dressing in place dry/intact; NEAL drain with serosanguineous output Neuro: Normal speech, normal affect NEAL drain in place NGT to LIWS in place [place] in place Problem List: Severe Sepsis, secondary to perforated duodenal ulcer, now s/p buck patch repair of perforated ulcer (11/21) sinus tachycardia Hyperglycemia hyponatremia, hypocalcemia, hypomagnesemia , hypoPO4 Hypertension Microscopic hematuria morbid obesity Severe Sepsis, secondary to perforated duodenal ulcer, now s/p buck patch repair of perforated ulcer (11/21) sinus tachycardia CT dissection (11/20): perforated duodenal ulcer. Mucosal thickening involving multiple segments of small bowel in lower abdomen/pelvis. Multiple locules of intramural air consistent with pneumatosis intestinals which may reflect bowel ischemia. Interloop fluid adjacent to thickened segments of small bowel and mesenteric edema, likely reactive. Large amount of fluid extending into the pelvis. Cholelithiasis CXR (11/23): pulmonary edema/atecectasis, trace free air in RUQ underneath right hemidiaphragm Dr. Montemayor consulted s/p buck patch repair of perforated ulcer (11/21) Found to have perforated duodenal bulb with gross bilious contamination throughout abd; some area of inflamed bowels seen during surgery however no obvious ischemic changes continue PPI drip NEAL drain in place; NGT to LIWS trend H&H expected to have prolonged ileus due to perforation / gross bilious contamination anticipate will need PICC /TPN continue empiric levaquin / flagyl (11/21-) afebrile, leukocytosis 14.5 -> 17.8 (11/23) invanz x1 given 11/[address] Montemayor PRN analgesics / antiemetics PT consulted sinus tachycardia likely secondary to pain and body habitus UOP improved decrease IVF, some pulm eddema and lwoer extremity edema on exam/cxr Hyperglycemia patient denies history of diabetes; unclear etiology, possibly from stress response given all going on, possible diabetes, check A1c - pending accu-checks, SSI hyponatremia, hypocalcemia, hypomagnesemia , hypoPO4 secondary to decreased PO / surgery Daily labs Replace PRN Hypertension confirm home meds Microscopic hematuria can be reassessed as outpatient once infxn resolves VTE: heparin sq Code: Full Dispo: Home, ~3-4 days
--- NOTE | 2023-11-24 10:53 | P.PN ---
Subjective Date of Service: 11/23/23 Chief Complaint: Perforated duodenal ulcer Subjective: Improving (Patient feels much better, ambulatory with assist.) Physical Examination - Vital Signs Temperature: 97.4 F Blood Pressure: 173/88 Pulse: 105 Respirations: 25 Pulse Ox (%): 95 - Physical Exam General: Alert, In no apparent distress, Cooperative Respiratory: Clear to auscultation bilaterally, Diminished Cardiovascular: Other (tachycardia) Gastrointestinal: Other (soft, appropriate TTP, ND, incision clean and dry, dressings in place, NEAL serosanguanous, binder in place) Musculoskeletal: No clubbing, No swelling, No contractures, No erythema, No tenderness Integumentary: No rashes, No breakdown, No tenderness/swelling Neurological: Normal speech Assessment And Plan - Current Problems (Diagnosis) (1) Perforated duodenal ulcer Current Visit: Yes Status: Acute Plan: 48 year old man s/p exploratory laparotomy with Alvino patch repair of perforated duodenal ulcer with gross contamination on 11/22/2023 Gen / Neuro: pain control adequate with dilaudid @ this time CVS: Tachycardia remains, continue IV fluid hydration, no signs of acute blood loss, likely reactive due to SIRS Pulm: Atelectasis, respiratory insufficiency due to poor inspiratory effort - continue incentive spirometry, up in chair, ambulate with assist GI : anticipate ileus due to amount of contamination, serial exams, high risk fo r infection, NEAL to remain, NGT to remain, plan for swallow study this week FEN: continue NS for now, electrolyte replacement protocol, anticipate need for PICC and TPN soon when available ID: continue levaquin and flagyl consider invanz Renal: adequate urine output, continue to monitor Prophylaxis: heparin, SCD, incetive spirometry, PPI drip to continue Endo: continue insulin replacement protocol Tubes / lines: anticipate DC jordan soon, NGT, NEAL to stay for now, need PICC line soon PT - physical therapy to continue with assist Placement: anticipate DC home when improved Other: Strict I/O, drain care, wound care daily with gauze
--- NOTE | 2023-11-24 10:55 | P.PN ---
Subjective Date of Service: 11/24/23 Chief Complaint: Perforated duodenal ulcer Subjective: Improving (no acute events. continues to feel better) Physical Examination - Vital Signs Temperature: 97.4 F Blood Pressure: 173/88 Pulse: 105 Respirations: 25 Pulse Ox (%): 95 - Physical Exam General: Alert, In no apparent distress, Oriented x3, Cooperative HEENT: Atraumatic Neck: Supple Respiratory: Clear to auscultation bilaterally, Diminished Cardiovascular: Other (tachycardia) Gastrointestinal: Other (soft, appropriate TTP, ND, incision clean and dry, dressings in place, NEAL serosanguanous) Musculoskeletal: No clubbing, No swelling, No contractures, No erythema, No tenderness, No warmth Integumentary: No rashes, No breakdown, No tenderness/swelling Neurological: Normal speech Assessment And Plan - Current Problems (Diagnosis) (1) Perforated duodenal ulcer Current Visit: Yes Status: Acute Plan: 48 year old man s/p exploratory laparotomy with Alvino patch repair of perforated duodenal ulcer with gross contamination on 11/22/2023 Gen / Neuro: pain control adequate with dilaudid @ this time CVS: Tachycardia remains, continue IV fluid hydration, no signs of acute blood loss, likely reactive due to SIRS Pulm: Atelectasis, respiratory insufficiency due to poor inspiratory effort - continue incentive spirometry, up in chair, ambulate with assist GI : anticipate ileus due to amount of contamination, serial exams, high risk for infection, NEAL to remain, NGT to remain, plan for swallow study this week FEN: continue NS for now, electrolyte replacement protocol, anticipate need for PICC and TPN soon when available ID: continue levaquin and flagyl - invanz x1 Renal: adequate urine output, continue to monitor Prophylaxis: heparin, SCD, incetive spirometry, PPI drip to continue Endo: continue insulin replacement protocol Tubes / lines: DC jordan, NGT, NEAL to stay for now, need PICC line soon PT - physical therapy to continue with assist Placement: anticipate DC home when improved Other: Strict I/O, drain care, wound care daily with gauze
[2023-11-24] MEDS: NA CHLORIDE 0.9% 100 ML IV SCH (11:00)
[2023-11-24] MEDS: ERTAPENEM SODIUM 1 GM VIAL IVPB ONE (11:22)
[2023-11-24] MEDS ORDERED: NA CHLORIDE 0.9% 1,000 ML ONE (13:35)
[2023-11-24] MEDS ORDERED: HYDRALAZINE HCL 20 MG/ML VIAL ONE (20:08)
[2023-11-24] MEDS: HYDRALAZINE HCL 20 MG/ML VIAL IV PRN (20:09)
[2023-11-24] MEDS: NA CHLORIDE 0.9% 1,000 ML IV SCH (22:15)
[2023-11-25] MEDS: METOPROLOL TARTRATE 5 MG/5 ML INJ IV SCH (04:43)
[2023-11-25] MEDS: NA CHLORIDE 0.9% 500 ML IV ONE (04:44)
[2023-11-25 06:15] LABS: Absolute Basophils 0.1 K/uL (0-0.5); Absolute Eosinophils 0.3 K/uL (0-0.5); Absolute Lymphocytes (CBC) 1.2 K/uL (0.7-4.9); Absolute Monocytes 0.8 K/uL (0.1-1.3); Absolute Neutrophil 14.5 K/uL (1.8-8.0); Basophils % 0.4 % (0-1.3); Eosinophils % 1.9 % (0-4.4); Hematocrit 35.1 % (39.6-49.0); Hemoglobin 11.8 g/dL (13.6-17.9); Lymphocytes % 7.2 % (15.3-44.8); MCH 31.7 pg (27.0-35.0); MCHC 33.6 g/dL (32.0-36.0); MCV 94.3 fL (80-100); MPV 7.9 fL (7.6-11.3); Neutrophils % 85.5 % (41.7-73.7); Platelets 299 thou/uL (152-406); RBC Red Blood Cell Count 3.72 M/uL (4.33-5.43); Red Cell Distribution Width 13.3 % (12.1-15.2)
[2023-11-25 06:24] LABS: Albumin 1.9 g/dL (3.4-5.0); Albumin/Globulin Ratio 0.5 (1.1-1.8); Anion Gap 10.6 mEq/L (5.0-15.0); Bilirubin Total 0.4 mg/dL (0.2-1.0); Globulin 3.9 g/dL (2.3-3.5); Magnesium 1.8 mg/dL (1.6-2.4); Phosphorus 2.5 mg/dL (2.5-4.9); Potassium 3.6 mEq/L (3.5-5.1); Protein, Total 5.8 g/dL (6.4-8.2)
--- NOTE | 2023-11-25 07:48 | P.PN ---
Date of Service: 11/25/23 Subjective: Feeling better today, abdominal pain improving able to take deeper breath today, up to 1.5L on incentive spirometer from 1L 3 BM yesterday/overnight +increased flatus afebrile; no nausea/vomiting ROS: 10 point ROS as noted above, otherwise negative Physical Exam: GEN: Alert, oriented, NAD HEENT: Normal conjunctiva, sclera anicteric, CV: Sinus tachycardia, trace b/l lower extremity edema above ankles Pulm: shallow respirations, clear bilaterally ABD: soft, mild epigastric tenderness, surgical dressing in place dry/intact; NEAL drain with serosanguineous output Neuro: Normal speech, normal affect NEAL drain in place NGT to LIWS in place Problem List: Severe Sepsis, secondary to perforated duodenal ulcer, now s/p buck patch repair of perforated ulcer (11/21) sinus tachycardia Hyperglycemia hyponatremia, hypocalcemia, hypomagnesemia , hypoPO4 Hypertension Microscopic hematuria morbid obesity Severe Sepsis, secondary to perforated duodenal ulcer, now s/p buck patch repair of perforated ulcer (11/21) sinus tachycardia CT dissection (11/20): perforated duodenal ulcer. Mucosal thickening involving multiple segments of small bowel in lower abdomen/pelvis. Multiple locules of intramural air consistent with pneumatosis intestinals which may reflect bowel ischemia. Interloop fluid adjacent to thickened segments of small bowel and mesenteric edema, likely reactive. Large amount of fluid extending into the pelvis. Cholelithiasis CXR (11/23): pulmonary edema/atecectasis, trace free air in RUQ underneath right hemidiaphragm Dr. Montemayor consulted s/p buck patch repair of perforated ulcer (11/21) Found to have perforated duodenal bulb with gross bilious contamination throughout abd; some area of inflamed bowels seen during surgery however no obvious ischemic changes continue PPI drip NEAL drain in place; NGT to LIWS trend H&H expected to have prolonged ileus due to perforation / gross bilious contamination continue empiric levaquin / flagyl (11/21-) afebrile, leukocytosis improving invanz x1 given 11/[address] Montemayor PRN analgesics / antiemetics PT consulted sinus tachycardia likely secondary to pain and body habitus julian dc'd 11/23; UOP improved decrease IVF, some pulm edema and lower extremity edema on exam/cxr PICC and TPN ordered 11/24 Hyperglycemia patient denies history of diabetes; unclear etiology, possibly from stress response given all going on, possible diabetes A1c 6.6 accu-checks, SSI hyponatremia, hypocalcemia, hypomagnesemia , hypoPO4 secondary to decreased PO / surgery Daily labs Replace PRN Hypertension confirm home meds IV hydralazine PRN Microscopic hematuria can be reassessed as outpatient once infxn resolves VTE: heparin sq Code: Full Dispo: Home, ~3-4 days
[2023-11-25] MEDS: MAGNESIUM SULFATE 1 gm IVPB 1 GM/100 ML BAG IV ONE (08:26)
[2023-11-25] MEDS: POTASSIUM PHOS IN 0.9 % NACL 15 MMOL/250 ML BAG IV ONE (08:26)
[2023-11-25] MEDS ORDERED: HYDRALAZINE HCL 20 MG/ML VIAL ONE ×2 (09:08→19:09)
[2023-11-25] MEDS: Levofloxacin 250mg IV 250 MG/50 ML BAG IV ONE (09:11)
[2023-11-25 09:57] LABS: Blood Morphology Comment NOT SEEN (NOT SEEN); Platelet Estimate ADEQ; White Blood Cell Scan OK (OK)
[2023-11-25] MEDS: PANTOPRAZOLE 40 MG INJ ONE (11:59)
[2023-11-25] MEDS ORDERED: AA 4.25 %/D5W/ELECTROLYTES 2,000 ML, Lipids 20% 250 ML with MULTIVITAMINS INJ 10 ML IV SCH (17:00)
[2023-11-25] MEDS: CLONIDINE 0.2 MG/PATCH TD SCH (21:41)
[2023-11-25] MEDS: Mupirocin NASAL 2 APPL/1 GM TUBE NAS SCH (21:42)
--- NOTE | 2023-11-25 22:36 | RAD REPORT ---
EXAM DESCRIPTION: RAD - Chest Single View - 11/25/2023 10:01 pm CLINICAL HISTORY: Device placement PICC line placement IMPRESSION: The tip of a PICC line is not well seen but probably lies within the superior vena cava
[2023-11-26] MEDS: AA 5%/D20W/ELECTROLYTES-TPN 2,000 ML, Lipids 20% 250 ML with MULTIVITAMINS INJ 10 ML IV SCH (00:02)
[2023-11-26] MEDS ORDERED: HEPARIN 5000 UNIT/ML 1 ML VIAL ONE ×3 (00:35→16:50)
[2023-11-26] MEDS ORDERED: HYDROMORPHONE HCL 1 MG/ML INJ ONE ×3 (00:41→17:46)
[2023-11-26] MEDS ORDERED: HYDRALAZINE HCL 20 MG/ML VIAL ONE ×2 (04:19→17:12)
[2023-11-26 05:15] LABS: Absolute Basophils 0.1 K/uL (0-0.5); Absolute Eosinophils 0.3 K/uL (0-0.5); Absolute Lymphocytes (CBC) 1.2 K/uL (0.7-4.9); Absolute Monocytes 1.1 K/uL (0.1-1.3); Absolute Neutrophil 9.2 K/uL (1.8-8.0); Basophils % 0.5 % (0-1.3); Eosinophils % 2.8 % (0-4.4); Hematocrit 32.7 % (39.6-49.0); Hemoglobin 11.3 g/dL (13.6-17.9); Lymphocytes % 10.2 % (15.3-44.8); MCH 33.3 pg (27.0-35.0); MCHC 34.7 g/dL (32.0-36.0); MCV 95.8 fL (80-100); MPV 7.7 fL (7.6-11.3); Monocytes % 9.4 % (3.3-12.3); Neutrophils % 77.1 % (41.7-73.7); Platelets 291 thou/uL (152-406); RBC Red Blood Cell Count 3.41 M/uL (4.33-5.43); Red Cell Distribution Width 13.1 % (12.1-15.2)
[2023-11-26 05:19] LABS: Albumin 1.9 g/dL (3.4-5.0); Albumin/Globulin Ratio 0.5 (1.1-1.8); Anion Gap 5.2 mEq/L (5.0-15.0); Bilirubin Total 0.3 mg/dL (0.2-1.0); Globulin 3.7 g/dL (2.3-3.5); Phosphorus 2.9 mg/dL (2.5-4.9); Potassium 3.2 mEq/L (3.5-5.1); Protein, Total 5.6 g/dL (6.4-8.2)
[2023-11-26] MEDS ORDERED: INSULIN REGULAR (HUMAN) 100 UNIT/ML ONE ×3 (05:50→17:12)
[2023-11-26] MEDS ORDERED: METRONIDAZOLE 500mg IVPB 500 MG/100 ML BAG IV ONE ×3 (05:51→16:50)
[2023-11-26] MEDS ORDERED: KCL 20 MEQ/100 mL IVPB 100 ML IV ONE ×2 (05:51→09:18)
[2023-11-26] MEDS: KCL 20 MEQ/100 mL IVPB 20 MEQ/100 ML BAG IV SCH (05:53)
--- NOTE | 2023-11-26 07:03 | ECHO ---
HEIGHT: 5 ft 6 in WEIGHT: 321 lb 9.6 oz DATE OF STUDY: 11/25/[address]: Pallavi Pete MD 2-DIMENSIONAL: YES M.MODE: YES DOPPLER: YES COLOR FLOW: YES TDS: PORTABLE: YES DEFINITY: BUBBLE STUDY: DIAGNOSIS: TACHYCARDIA CARDIAC HISTORY: CATHERIZATION: SURGERY: PROSTHETIC VALVE: PACEMAKER: MEASUREMENTS (cm) DIASTOLIC (NORMALS) SYSTOLIC (NORMALS) IVSd 1.0 (0.6-1.2) LA Diam 3.4 (1.9-4.0) LVEF 66% LVIDd 3.6 (3.5-5.7) LVIDs 2.3 (2.0-3.5) %FS 36% LVPWd 0.9 (0.6-1.2) Ao Diam 2.5 (2.0-3.7) 2 DIMENSIONAL ASSESSMENT: RIGHT ATRIUM: NORMAL LEFT ATRIUM: NORMAL RIGHT VENTRICLE: NORMAL LEFT VENTRICLE: NORMAL TRICUSPID VALVE: NORMAL MITRAL VALVE: NORMAL PULMONIC VALVE: NORMAL AORTIC VALVE: NORMAL PERICARDIAL EFFUSION: NONE AORTIC ROOT: NORMAL LEFT VENTRICULAR WALL MOTION: NORMAL DOPPLER/COLOR FLOW: NORMAL COMMENTS: 1. NORMAL LEFT VENTRICULAR SYSTOLIC FUNCTION, EJECTION FRACTION 60-65%, NORMAL WALL MOTION 2. NORMAL DIASTOLIC FUNCTION TECHNOLOGIST: YOBANI PAGE
[2023-11-26] MEDS ORDERED: NA CHLORIDE 0.9% 1,000 ML ONE (09:18)
[2023-11-26] MEDS ORDERED: Levofloxacin 750mg IV 750 MG/150 ML BAG IV ONE (09:18)
[2023-11-26] MEDS: Levofloxacin 750mg IV 750 MG/150 ML BAG IV SCH (09:26)
[2023-11-26] MEDS ORDERED: LABETALOL 20 MG/4ML SYRINGE IV ONE ×2 (09:56→21:20)
[2023-11-26] MEDS: LABETALOL 20 MG/4ML SYRINGE IV ONE (09:57)
--- NOTE | 2023-11-26 14:50 | P.PN ---
Subjective Date of Service: 11/26/23 Chief Complaint: Perforated duodenal ulcer Patient states he feels much better today. He states that he has had multiple bowel movements, including 1 this morning. He denies any abdominal pain or shortness of breath. No recorded fever. Physical Examination - Vital Signs Temperature: 98.6 F Blood Pressure: 171/90 Pulse: 100 Respirations: 20 Pulse Ox (%): 97 Assessment And Plan - Plan Physical Exam: GEN: Alert, oriented, NAD HEENT: NG tube in place. CV: Sinus tachycardia, trace b/l lower extremity edema above ankles Pulm: clear bilaterally, adequate breath sounds bilaterally ABD: soft, surgical dressing in place dry/intact; NEAL drain with serosanguineous output Neuro: Normal speech, normal affect NEAL drain in place NGT to LIWS in place Problem List: Severe Sepsis, secondary to perforated duodenal ulcer, now s/p buck patch repair of perforated ulcer (11/21) sinus tachycardia Hyperglycemia hyponatremia, hypocalcemia, hypomagnesemia , hypoPO4 Hypertension Microscopic hematuria morbid obesity Severe Sepsis, secondary to perforated duodenal ulcer, now s/p buck patch repair of perforated ulcer (11/21) sinus tachycardia CT dissection (11/20): perforated duodenal ulcer. Mucosal thickening involving multiple segments of small bowel in lower abdomen/pelvis. Multiple locules of intramural air consistent with pneumatosis intestinals which may reflect bowel ischemia. Interloop fluid adjacent to thickened segments of small bowel and mesenteric edema, likely reactive. Large amount of fluid extending into the pelvis. Cholelithiasis CXR (11/23): pulmonary edema/atecectasis, trace free air in RUQ underneath right hemidiaphragm Seen by Dr. Morrison Found to have perforated duodenal bulb with gross bilious contamination throughout abd; some area of inflamed bowels seen during surgery however no obvious ischemic changes s/p buck patch repair of perforated ulcer (11/21) continue PPI drip NEAL drain in place; NGT to LIWS trend H&H Dr. Montemayor service following and recommending speech evaluation tomorrow and possibly methylene blue test to look for leakage before considering any oral intake. Leukocytosis is improving continue levaquin / flagyl (11/21-) invanz x1 given 11/[address] Montemayor PRN analgesics / antiemetics Continue PT. jordan dc'd 11/23; UOP improved Continue TPN via PICC line Hyperglycemia patient denies history of diabetes; unclear etiology, possibly from stress response given all going on, possible diabetes A1c 6.6 accu-checks, SSI hyponatremia, hypocalcemia, hypomagnesemia , hypophosphatemia Daily labs Patient is on TPN Monitor and correct electrolytes as needed Hypertension Clonidine patch IV hydralazine PRN Microscopic hematuria Outpatient follow-up. VTE: heparin sq Code: Full Dispo: Home
[2023-11-26] MEDS: AA 5%/D20W/ELECTROLYTES-TPN 2,000 ML IV SCH (16:48)
[2023-11-26] MEDS ORDERED: AA 4.25 %/D5W/ELECTROLYTES 2,000 ML IV SCH (17:00)
[2023-11-26] MEDS: INSULIN REGULAR (HUMAN) 100 UNIT/ML SQ SCH (17:14)
[2023-11-26] MEDS: LABETALOL 20 MG/4ML SYRINGE IV PRN (21:23)
[2023-11-27] MEDS ORDERED: HEPARIN 5000 UNIT/ML 1 ML VIAL ONE ×2 (00:06→08:27)
[2023-11-27] MEDS ORDERED: HYDRALAZINE HCL 20 MG/ML VIAL ONE (00:06)
[2023-11-27] MEDS ORDERED: INSULIN REGULAR (HUMAN) 100 UNIT/ML ONE ×3 (00:07→11:48)
[2023-11-27] MEDS ORDERED: METRONIDAZOLE 500mg IVPB 500 MG/100 ML BAG IV ONE ×2 (00:08→11:48)
[2023-11-27] MEDS ORDERED: HYDROMORPHONE HCL 1 MG/ML INJ ONE ×2 (00:24→12:04)
[2023-11-27 05:18] LABS: Absolute Eosinophils 0.5 K/uL (0-0.5); Absolute Lymphocytes (CBC) 1.2 K/uL (0.7-4.9); Absolute Monocytes 1.3 K/uL (0.1-1.3); Absolute Neutrophil 9.6 K/uL (1.8-8.0); Basophils % 0.3 % (0-1.3); Eosinophils % 3.7 % (0-4.4); Hematocrit 33.8 % (39.6-49.0); Hemoglobin 11.3 g/dL (13.6-17.9); Lymphocytes % 9.8 % (15.3-44.8); MCH 31.7 pg (27.0-35.0); MCHC 33.5 g/dL (32.0-36.0); MCV 94.8 fL (80-100); MPV 7.7 fL (7.6-11.3); Monocytes % 10.1 % (3.3-12.3); Neutrophils % 76.1 % (41.7-73.7); Platelets 321 thou/uL (152-406); RBC Red Blood Cell Count 3.56 M/uL (4.33-5.43); Red Cell Distribution Width 13.3 % (12.1-15.2)
[2023-11-27 05:30] LABS: Albumin 1.9 g/dL (3.4-5.0); Albumin/Globulin Ratio 0.5 (1.1-1.8); Anion Gap 5.4 mEq/L (5.0-15.0); Bilirubin Total 0.2 mg/dL (0.2-1.0); Globulin 3.9 g/dL (2.3-3.5); Potassium 3.4 mEq/L (3.5-5.1); Protein, Total 5.8 g/dL (6.4-8.2)
[2023-11-27] MEDS ORDERED: KCL 20 MEQ/100 mL IVPB 100 ML IV ONE ×2 (05:51→08:28)
[2023-11-27 05:54] VITALS: BMI 51.3
[2023-11-27] MEDS: KCL 20 MEQ/100 mL IVPB 20 MEQ/100 ML BAG IV SCH (06:03)
[2023-11-27] MEDS ORDERED: Levofloxacin 750mg IV 750 MG/150 ML BAG IV ONE (08:28)
--- NOTE | 2023-11-27 11:30 | RAD REPORT ---
EXAM DESCRIPTION: RAD - Upper GI Series Wo KUB - 11/27/2023 11:07 am CLINICAL HISTORY: check for duodenal leak Abdominal pain COMPARISON: Angio Aorta For Dissection dated 11/22/2023 FINDINGS: Gastrografin contrast was slowly injected the enteric tube into the stomach. Contrast is s een filling the stomach and the duodenal C-loop. The duodenal C-loop appears narrow throughout presum ably related to edema. No contrast extravasation outside the duodenum was observed during the study. Total fluoroscopy time: 2.5 minutes Number of images acquired: 14 IMPRESSION: Narrow lumen of the duodenal C-loop is seen presumably due to edema. There is no evidenc e of contrast leakage outside the duodenum.
[2023-11-27] MEDS: METHYLENE BLUE 1% 10 ML VIAL FT ONE (13:00)
--- NOTE | 2023-11-27 14:24 | P.PN ---
Subjective Date of Service: 11/27/23 Chief Complaint: Perforated duodenal ulcer Patient has no new complain. He was seen ambulating in the hallway with physical therapy. He denies any abdominal pain. Physical Examination - Vital Signs Temperature: 98.3 F Blood Pressure: 152/79 Pulse: 109 Respirations: 16 Pulse Ox (%): 96 - Studies Microbiology Data (last 24 hrs): 11/21/23 23:20 Blood - Blood Aerobic Blood Culture - Final No growth in 5 days. 11/21/23 23:20 Blood - Blood Anaerobic Blood Culture - Final No growth in 5 days. 11/21/23 23:20 Blood - Blood Aerobic Blood Culture - Final No growth in 5 days. 11/21/23 23:20 Blood - Blood Anaerobic Blood Culture - Final No growth in 5 days. Assessment And Plan - Plan Physical Exam: GEN: Alert, oriented, NAD HEENT: NG tube in place. CV: Tachycardia, regular heart rate. Pulm: clear bilaterally, adequate breath sounds bilaterally ABD: soft, surgical dressing in place dry/intact; NEAL drain with serosanguineous output Neuro: Normal speech, normal affect NEAL drain in place NGT to LIWS in place Problem List: Severe Sepsis, secondary to perforated duodenal ulcer, now s/p buck patch repair of perforated ulcer (11/21) sinus tachycardia Hyperglycemia hyponatremia, hypocalcemia, hypomagnesemia , hypoPO4 Hypertension Microscopic hematuria morbid obesity Severe Sepsis, secondary to perforated duodenal ulcer, now s/p buck patch repair of perforated ulcer (11/21) sinus tachycardia CT dissection (11/20): perforated duodenal ulcer. Mucosal thickening involving multiple segments of small bowel in lower abdomen/pelvis. Multiple locules of intramural air consistent with pneumatosis intestinals which may reflect bowel ischemia. Interloop fluid adjacent to thickened segments of small bowel and mesenteric edema, likely reactive. Large amount of fluid extending into the pelvis. Cholelithiasis CXR (11/23): pulmonary edema/atecectasis, trace free air in RUQ underneath right hemidiaphragm Seen by Dr. Morrison Found to have perforated duodenal bulb with gross bilious contamination throughout abd; some area of inflamed bowels seen during surgery however no obvious ischemic changes s/p buck patch repair of perforated ulcer (11/21) continue PPI drip NEAL drain in place; NGT to LIWS trend H&H Dr. Montemayor following. Small bowel series shows no leak. Dr. Montemayor is planning methylene blue test to look for leakage before considering any oral intake. Leukocytosis improved. continue levaquin / flagyl (11/21-) invanz x1 given 11/[address] Montemayor PRN analgesics / antiemetics Continue PT. jordan dc'd 11/23. Continue TPN via PICC line Hyperglycemia A1c 6.6 accu-checks, SSI hyponatremia, hypocalcemia, hypomagnesemia , hypophosphatemia Daily labs Patient is on TPN Monitor and correct electrolytes as needed Hypertension Clonidine patch IV hydralazine PRN Microscopic hematuria Outpatient follow-up. VTE: heparin sq Code: Full Dispo: Home
[2023-11-28 04:47] LABS: Absolute Basophils 0.1 K/uL (0-0.5); Absolute Eosinophils 0.6 K/uL (0-0.5); Absolute Lymphocytes (CBC) 1.4 K/uL (0.7-4.9); Absolute Monocytes 1.1 K/uL (0.1-1.3); Absolute Neutrophil 10.3 K/uL (1.8-8.0); Basophils % 0.8 % (0-1.3); Eosinophils % 4.1 % (0-4.4); Hematocrit 32.6 % (39.6-49.0); Hemoglobin 11.3 g/dL (13.6-17.9); Lymphocytes % 10.2 % (15.3-44.8); MCH 32.5 pg (27.0-35.0); MCHC 34.8 g/dL (32.0-36.0); MCV 93.5 fL (80-100); MPV 7.2 fL (7.6-11.3); Monocytes % 8.4 % (3.3-12.3); Neutrophils % 76.5 % (41.7-73.7); Platelets 345 thou/uL (152-406); RBC Red Blood Cell Count 3.49 M/uL (4.33-5.43); Red Cell Distribution Width 13.5 % (12.1-15.2)
[2023-11-28 05:15] LABS: Albumin 1.9 g/dL (3.4-5.0); Albumin/Globulin Ratio 0.5 (1.1-1.8); Anion Gap 6.7 mEq/L (5.0-15.0); Bilirubin Total 0.2 mg/dL (0.2-1.0); Potassium 3.7 mEq/L (3.5-5.1); Protein, Total 5.9 g/dL (6.4-8.2)
[2023-11-28] MEDS: KCL 20 MEQ/100 mL IVPB 20 MEQ/100 ML BAG IV SCH (06:33)
[2023-11-28] MEDS ORDERED: HYDROCODONE/APAP 7.5/325 MG TAB PO PRN (07:50)
[2023-11-28] MEDS: HYDROMORPHONE HCL 0.5 MG/0.5 ML INJ IV PRN (08:40)
[2023-11-28 08:58] VITALS: O2SAT 96
--- NOTE | 2023-11-28 16:34 | P.PN ---
Subjective Date of Service: 11/28/23 Chief Complaint: Perforated duodenal ulcer Patient is doing much better today Patient started on a clear liquid diet today by surgery and he is tolerating it. He denies any abdominal pain. Physical Examination - Vital Signs Temperature: 97.5 F Blood Pressure: 133/66 Pulse: 91 Respirations: 14 Pulse Ox (%): 95 Assessment And Plan - Plan Physical Exam: GEN: Alert, oriented, NAD CV: Tachycardia, regular heart rate. Pulm: clear bilaterally, adequate breath sounds bilaterally ABD: soft, surgical dressing in place dry/intact; NEAL drain with serosanguineous output Neuro: Normal speech, normal affect NEAL drain in place Diagnosis Severe Sepsis, secondary to perforated duodenal ulcer, now s/p buck patch repair of perforated ulcer (11/21) sinus tachycardia Hyperglycemia hyponatremia, hypocalcemia, hypomagnesemia , hypoPO4 Hypertension Microscopic hematuria morbid obesity Severe Sepsis, secondary to perforated duodenal ulcer, now s/p buck patch repair of perforated ulcer (11/21) sinus tachycardia CT dissection (11/20): perforated duodenal ulcer. Mucosal thickening involving multiple segments of small bowel in lower abdomen/pelvis. Multiple locules of intramural air consistent with pneumatosis intestinals which may reflect bowel ischemia. Interloop fluid adjacent to thickened segments of small bowel and mesenteric edema, likely reactive. Large amount of fluid extending into the pelvis. Cholelithiasis CXR (11/23): pulmonary edema/atecectasis, trace free air in RUQ underneath right hemidiaphragm Seen by Dr. Morrison Found to have perforated duodenal bulb with gross bilious contamination throughout abd; some area of inflamed bowels seen during surgery however no obvious ischemic changes s/p buck patch repair of perforated ulcer (11/21) continue PPI drip NEAL drain in place; NGT to LIWS trend H&H Dr. Montemayor following. Small bowel series shows no leak. Status post methylene blue dye test. Patient still with abdominal clear liquid diet which he is tolerating. Leukocytosis improved. continue levaquin / flagyl (11/21-) invanz x1 given 11/[address] Montemayor PRN analgesics / antiemetics Continue PT. jordan dc'd 11/23. Wean off TPN. Hyperglycemia A1c 6.6 accu-checks, SSI hyponatremia, hypocalcemia, hypomagnesemia , hypophosphatemia Daily labs Monitor and correct electrolytes as needed Hypertension Resume home dose losartan and discontinue clonidine patch. IV hydralazine PRN Microscopic hematuria Outpatient follow-up. VTE: heparin sq Code: Full Dispo: Home
[2023-11-28] MEDS: LOSARTAN POTASSIUM 50 MG TABLET PO SCH (17:07)
[2023-11-28] MEDS: PANTOPRAZOLE INJ 80 MG in NA CHLORIDE 0.9% 250 ML IV SCH (18:12)
[2023-11-29 04:45] LABS: Absolute Basophils 0.2 K/uL (0-0.5); Absolute Eosinophils 0.5 K/uL (0-0.5); Absolute Lymphocytes (CBC) 1.9 K/uL (0.7-4.9); Basophils % 1.2 % (0-1.3); Eosinophils % 4.3 % (0-4.4); Hematocrit 34.1 % (39.6-49.0); Hemoglobin 11.5 g/dL (13.6-17.9); Lymphocytes % 14.7 % (15.3-44.8); MCH 31.9 pg (27.0-35.0); MCHC 33.7 g/dL (32.0-36.0); MCV 94.6 fL (80-100); MPV 7.6 fL (7.6-11.3); Monocytes % 8.2 % (3.3-12.3); Neutrophils % 71.6 % (41.7-73.7); Platelets 372 thou/uL (152-406); RBC Red Blood Cell Count 3.61 M/uL (4.33-5.43); Red Cell Distribution Width 13.3 % (12.1-15.2)
[2023-11-29 05:06] LABS: Albumin/Globulin Ratio 0.5 (1.1-1.8); Anion Gap 7.1 mEq/L (5.0-15.0); Bilirubin Total 0.2 mg/dL (0.2-1.0); Globulin 4.1 g/dL (2.3-3.5); Potassium 4.1 mEq/L (3.5-5.1); Protein, Total 6.1 g/dL (6.4-8.2)
[2023-11-29 13:27] VITALS: BP 121/70; TEMP 98.1
--- NOTE | 2023-11-29 13:31 | P.DS ---
Admission Date: 11/22/23 Discharge Date: 11/29/23 Disposition: ROUTINE DISCHARGE Discharge Condition: FAIR Reason for Admission: Perforated duodenal ulcer Brief History of Present Illness: Patient is a 48-year-old gentleman with morbid obesity and history of hypertension comes into the emergency room with abdominal pain. He states he started having abdominal pain about a week ago. Since the pain started a week ago, he has been eating very little. However, earlier today he ate some [place] food, and his pain became very severe. He had sharp pain and his family brought him into the emergency room for further evaluation. In the ER, patient was found to have a leukocytosis with a white blood cell count of 33,000. Patient also had CT imaging which revealed a perforated duodenal ulcer. General surgery was consulted. Patient be taken to the operating room, and he will be admitted afterwards for inpatient hospitalization. Patient has a history of hypertension. Patient denies any cardiac disease or any pulmonary disease. He has never been diagnosed with obstructive sleep apnea. His BMI is almost 50. His states he does have some issues with his breathing when he sleeping where he does stop breathing at times. Patient otherwise with no other medical problems. Patient does have some allergies to aspirin, penicillin, and an unknown medication that he took at [facility] which gave him hives. They said it may have been a medication that they used for coughing. Not sure if this was codeine. Will try to stay away from using codeine/morphine for pain control. Hospital Course: Diagnosis Severe Sepsis, secondary to perforated duodenal ulcer, now s/p buck patch repair of perforated ulcer (11/21) sinus tachycardia Hyperglycemia hyponatremia, hypocalcemia, hypomagnesemia , hypoPO4 Hypertension Microscopic hematuria morbid obesity Severe Sepsis, secondary to perforated duodenal ulcer, now s/p buck patch repair of perforated ulcer (11/21) sinus tachycardia CT dissection (11/20): perforated duodenal ulcer. Mucosal thickening involving multiple segments of small bowel in lower abdomen/pelvis. Multiple locules of intramural air consistent with pneumatosis intestinals which may reflect bowel ischemia. Interloop fluid adjacent to thickened segments of small bowel and mesenteric edema, likely reactive. Large amount of fluid extending into the pelvis. Cholelithiasis CXR (11/23): pulmonary edema/atecectasis, trace free air in RUQ underneath right hemidiaphragm Seen by Dr. Morrison Found to have perforated duodenal bulb with gross bilious contamination throughout abd; some area of inflamed bowels seen during surgery however no obvious ischemic changes s/p buck patch repair of perforated ulcer (11/21) Treated with PPI drip. Transitioned to oral protonix on discharge. NEAL drain in place; s/p NGT Hemoglobin was stable. Dr. Montemayor following. Small bowel series showed no leak. Status post methylene blue dye test. Patient started on clear liquid diet and diet advanced which he tolerated Leukocytosis improved. He was treated with levaquin / flagyl (11/21-) invanz x1 given 11/[address] Montemayor Pt walked with PT using a RW. S/p TPN. Hyperglycemia A1c 6.6 Managed with accu-checks, SSI Hypertension Initially was on clonidine patch due to NPO status. Later resumed home dose losartan and discontinued clonidine patch. Microscopic hematuria Outpatient follow-up. Vital Signs/Physical Exam: Temp Pulse Resp BP Pulse Ox 98.1 F 97 H 18 121/70 100 11/29/23 12:00 11/29/23 12:00 11/29/23 12:00 11/29/23 12:00 11/29/23 12:00 General: Alert, In no apparent distress, Oriented x3, Obese HEENT: Mucous membr. moist/pink Neck: Supple, JVD not distended Respiratory: Clear to auscultation bilaterally, Normal air movement Cardiovascular: No edema, Regular rate/rhythm, Normal S1 S2 Gastrointestinal: Normal bowel sounds, Soft and benign, Non-distended, Other (NEAL drain in place) Musculoskeletal: No swelling Integumentary: No rashes, No cyanosis Neurological: Normal strength at 5/5 x4 extr Laboratory Data at Discharge: WBC 12.60 thou/uL (4.3-10.9) H 11/29/23 04:35 Hgb 11.5 g/dL (13.6-17.9) L 11/29/23 04:35 Hct 34.1 % (39.6-49.0) L 11/29/23 04:35 Plt Count 372 thou/uL (152-406) 11/29/23 04:35 PT 18.7 SECONDS (9.5-12.5) H 11/23/23 05:00 INR 1.73 11/23/23 05:00 APTT 31.8 SECONDS (24.3-36.9) 11/23/23 05:00 Sodium 134 mEq/L (136-145) L 11/29/23 04:35 Potassium 4.1 mEq/L (3.5-5.1) 11/29/23 04:35 BUN 8 mg/dL (7-18) 11/29/23 04:35 Creatinine 0.73 mg/dL (0.70-1.30) 11/29/23 04:35 Glucose 215 mg/dL (74-106) H 11/29/23 04:35 Phosphorus 2.9 mg/dL (2.5-4.9) 11/26/23 04:30 Magnesium 2.0 mg/dL (1.6-2.4) 11/26/23 04:30 Total Bilirubin 0.2 mg/dL (0.2-1.0) 11/29/23 04:35 AST 10 U/L (15-37) L 11/29/23 04:35 ALT 14 U/L (16-61) L 11/29/23 04:35 Alkaline Phosphatase 49 U/L (45-117) 11/29/23 04:35 Lipase 32 U/L (13-75) 11/21/23 23:10 Home Medications: Losartan Potassium [Cozaar*] 50 mg PO DAILY 11/22/23 glipiZIDE [Glipizide] 5 mg PO ACHS 11/22/23 Hydrocodone 7.5/APAP 325 [[place] 7.5/325 mg*] 1 tab PO Q4H PRN #20 tab 11/29/23 Pantoprazole [Protonix Tab] 40 mg PO BID #60 tab 11/29/23 levoFLOXacin [Levaquin] 750 mg PO DAILY #5 tab 11/29/23 metroNIDAZOLE [Metronidazole] 500 mg PO TID #15 tab 11/29/23 New Medications: levoFLOXacin [Levaquin] 750 mg PO DAILY #5 tab metroNIDAZOLE [Metronidazole] 500 mg PO TID #15 tab Hydrocodone 7.5/APAP 325 [[place] 7.5/325 mg*] 1 tab PO Q4H PRN #20 tab PRN Reason: Pain Scale 5-7 (Moderate) Pantoprazole [Protonix Tab] 40 mg PO BID #60 tab Diet: ADA Activity: Ad shea Followup: Dipak Montemayor MD [ACTIVE - CAN ADMIT] - 1 Week NONE,NONE [Primary Care Provider] - Time spent managing pt's care (in minutes): 38
== END 2023-11-29 15:06 | disposition home or self-care (01) | DRG 853 ==
LOC: ER 21:49 → ERHOLD 11-22 04:56 → 3RD-ICU 11-22 05:57 → 4TH 11-27 16:07
PROVIDERS: ADMIT Hospitalist; ATTEND Internal Medicine
PROC: 0DU907Z Supplement Duodenum with Autologous Tissue Substitute, Open Approach (ICD-10-PCS; 2023-11-22)
PROC: 0T9B70Z Drainage of Bladder with Drainage Device, Via Natural or Artificial Opening (ICD-10-PCS; principal; 2023-11-22 03:00)
PROC: 02HV33Z Insertion of Infusion Device into Superior Vena Cava, Percutaneous Approach (ICD-10-PCS; 2023-11-25)
DX: A41.9 Sepsis, unspecified organism (principal); K26.1 Acute duodenal ulcer with perforation; R65.21 Severe sepsis with septic shock; Z68.42 Body mass index [BMI] 45.0-49.9, adult; E87.20 Acidosis, unspecified; E87.1 Hypo-osmolality and hyponatremia; E66.01 Morbid (severe) obesity due to excess calories; I10 Essential (primary) hypertension; E83.51 Hypocalcemia; E83.39 Other disorders of phosphorus metabolism; E83.42 Hypomagnesemia; E11.65 Type 2 diabetes mellitus with hyperglycemia; J98.4 Other disorders of lung; D75.839 Thrombocytosis, unspecified; R31.29 Other microscopic hematuria; Z88.0 Allergy status to penicillin; Z79.82 Long term (current) use of aspirin; Z79.84 Long term (current) use of oral hypoglycemic drugs; Z28.310 Unvaccinated for COVID-19; Z87.891 Personal history of nicotine dependence; Z79.899 Other long term (current) drug therapy
CPT/HCPCS: 36415; 36569; 71045; 71275; 74175; 74240; 80048; 80053; 80076; 81001; 82947; 83036; 83605; 83690; 83735; 84100; 84145; 84484; 85014; 85018; 85025; 85027; 85610; 85730; 86850; 86900; 86901; 87040; 93005; 93306; 94010; 94760; 97116; 97163; 97530; 99285; A4216; C9113; J0360; J0696; J1100; J1170; J1335; J1644; J1815; J2001; J2250; J2405; J2710; J3010; J3475; J3480; J7030; J7040; J7050; P9045; Q9967